=== PATIENT | female | born 1985 | race Caucasian/White ===

== ENCOUNTER → 2016-06-09 | Outpatient (CLI) | payer BC ==
[~2016-06-09] MED LIST: PRENTAB26 PO
[2016-06-09 17:17] LABS: URINE APPEARANCE CLEAR (CLEAR); URINE BILIRUBIN NEG (NEG); URINE COLOR YELLOW; URINE NITRITE NEG (NEG); URINE PH 5.5 (4.5-7.5); URINE SPECIFIC GRAVITY 1.006 (1.000-1.030); UROBILINOGEN NEG (NEG)
[2016-06-09 17:26] LABS: MANUAL MICROSCOPIC REQUIRED? NO; REVIEW REQ? NO
== END | disposition home or self-care (01) ==
LOC: C.LABSPEC 16:02
PROVIDERS: ATTEND Obstetrics & Gynecology
DX: Z34.90 Encounter for supervision of normal pregnancy, unspecified, unspecified trimester (principal)

== ENCOUNTER → 2016-06-16 | Outpatient (CLI) | payer BC ==
[2016-06-16 15:34] LABS: BASO % 0.5 %; BASO ABS # 0.05 K/uL (0-0.2); COMPLETE YES; EOS % 3.3 %; IG% 0.2 %; LYMPH % 15.9 %; LYMPH ABS # 1.62 K/uL (1.2-3.4); MEAN CELL VOLUME 85.7 fL (80-100); MEAN CORPUSCULAR HEMOGLOBIN 28.9 pg (25-34); MEAN CORPUSCULAR HGB CONC 33.8 g/dl (32-36); MEAN PLATELET VOLUME 11.3 fL (7.4-10.4); NEUT % 72.1 %; PLATELET COUNT 255 K/uL (130-400); RED BLOOD COUNT 4.67 M/uL (4.2-5.4); WHITE BLOOD COUNT 10.17 K/uL (4.8-10.8)
== END | disposition home or self-care (01) ==
LOC: C.LAB1850 14:33
PROVIDERS: ATTEND Obstetrics & Gynecology
DX: Z34.90 Encounter for supervision of normal pregnancy, unspecified, unspecified trimester (principal)

== ENCOUNTER → 2016-06-16 | Outpatient (CLI) | payer BC ==
[2016-06-19 03:05] LABS: CHLAMYDIA TRACH RNA*** NOT DETECTED (NOT DETECTED); GC (NEIS GONORRHOEAE)RNA** NOT DETECTED (NOT DETECTED)
== END | disposition home or self-care (01) ==
LOC: C.LABSPEC 17:52
PROVIDERS: ATTEND Obstetrics & Gynecology
DX: Z34.90 Encounter for supervision of normal pregnancy, unspecified, unspecified trimester (principal)

== ENCOUNTER → 2016-08-15 | Outpatient (CLI) | payer BC ==
[2016-08-15 14:04] LABS: GTGD 50 Grams
== END | disposition home or self-care (01) ==
LOC: C.LAB1850 12:02
PROVIDERS: ATTEND Obstetrics & Gynecology
DX: Z34.02 Encounter for supervision of normal first pregnancy, second trimester (principal)

== ENCOUNTER → 2016-11-03 | Outpatient (CLI) | payer BC ==
[2016-11-03 14:34] LABS: GTGD 50 Grams
[2016-11-03 15:16] LABS: URINE APPEARANCE CLEAR (CLEAR); URINE BILIRUBIN NEG (NEG); URINE COLOR YELLOW; URINE NITRITE NEG (NEG); URINE PH 6.5 (4.5-7.5); UROBILINOGEN NEG (NEG)
[2016-11-03 15:17] LABS: MANUAL MICROSCOPIC REQUIRED? NO; REVIEW REQ? YES
== END | disposition home or self-care (01) ==
LOC: C.LAB1850 11:18
PROVIDERS: ATTEND Obstetrics & Gynecology
DX: Z34.02 Encounter for supervision of normal first pregnancy, second trimester (principal); Z3A.00 Weeks of gestation of pregnancy not specified

== ENCOUNTER → 2016-12-29 | Outpatient (CLI) | payer BC | END | disposition home or self-care (01) | LOC: C.LABSPEC 15:40 | PROVIDERS: ATTEND Obstetrics & Gynecology | DX: Z34.03 Encounter for supervision of normal first pregnancy, third trimester (principal) ==

== ENCOUNTER 2017-01-21 09:48 | Inpatient (IN) | payer BC ==
[~2017-01-21] VITALS: Ht 177.8 cm; Wt 102.5 kg
[2017-01-21] MEDS ORDERED: LACTATED RINGER'S 1000ML 1,000 ML IV SCH (11:32)
[2017-01-21 12:07] LABS: HEMATOCRIT 40.2 % (37-47); MEAN CELL VOLUME 85.5 fL (80-100); MEAN CORPUSCULAR HEMOGLOBIN 28.9 pg (25-34); MEAN CORPUSCULAR HGB CONC 33.8 g/dl (32-36); MEAN PLATELET VOLUME 11.5 fL (7.4-10.4); PLATELET COUNT 235 K/uL (130-400); WHITE BLOOD COUNT 12.67 K/uL (4.8-10.8)
[2017-01-21] MEDS ORDERED: NURSING VERBAL MED ORDER ONE (13:45)
[2017-01-21] MEDS ORDERED: MISOPROSTOLTAB 50 MCG TAB ONE (13:46)
[2017-01-21 14:37] VITALS: Ht 177.8 cm; Wt 102.5 kg
[2017-01-21] MEDS ORDERED: PRENTAB26 PO (14:39)
--- NOTE | 2017-01-21 16:48 | Medical Student: [facility] ---
Medical Student Progress Note Date of Service Jan 21, 2017. Progress Note S: 31yo at 39-2 currently in active labor. SROM at 06:30 w/o contractions. Continues to leak clear fluid. First dose of cytotec administered at 14:15 for cervical ripening. Onset of contractions began shortly after cytotec administration. Currently, contractions Q5min and experiencing very mild pain ( 2/10). O: Vital signs: BP: 111/74, HR: 88, RR: 20, Temp: 36.5 SVE: 1.0/75%/-3/vertex EFM: 150s, moderate variability, spontaneous accelerations to 165-170, no decelerations. Category 1. [place]: Q5min A: 31yo at 39-2 currently in active labor; Stage 1- latent for 2hrs; Fetus is reassuring/reactive. P: 1.) cytotec 50mcg q4hr PO; consider another dose at 16:15 2.) cervix checks for adequate progression (but sparingly because membranes are already ruptured and do not want to introduce bacteria/infection) 3.) consider Pitocin if magnitude of contractions fail to increase 4.) continue to monitor FHT and toco
[2017-01-21] MEDS ORDERED: BUPIVACAINE 0.25% 30 ML VIAL ONE (21:36)
[2017-01-21] MEDS ORDERED: EpHEDrine SULFATE INJ 50 MG/ML AMP ONE (21:36)
[2017-01-21] MEDS ORDERED: FENTANYL CITRATE INJ 50 MCG/1 ML 2 ML VIAL ONE (21:36)
[2017-01-21] MEDS ORDERED: FENTANYL 2MCG/ML ROPIV 1.25MG/ML 100ML BAG EPI ONE (21:36)
[2017-01-21] MEDS: LACTATED RINGER'S 1000ML 1,000 ML IV PRN ×2 (21:54→22:17)
[2017-01-21] MEDS ORDERED: LACTATED RINGER'S 1000ML 500 ML IV PRN (22:19)
[2017-01-21] MEDS ORDERED: NALOXONE HCL INJ 1 MG in SODIUM CHLORIDE 0.9% 1000ML 1,000 ML IV PRN (22:19)
[2017-01-21] MEDS ORDERED: NALOXONE HCL INJ 0.4 MG/1 ML VIAL/CARP IV PRN (22:30)
[2017-01-21] MEDS ORDERED: NALBUPHINE HCL INJ 10 MG/ML AMP IV PRN (22:30)
[2017-01-21] MEDS ORDERED: FENTANYL 2MCG/ML ROPIV 1.25MG/ML 100ML BAG EPI PRN (22:30)
[2017-01-21] MEDS ORDERED: DiphenhydrAMINE HCL 50 MG/ML VIAL IV PRN (22:30)
[2017-01-21] MEDS ORDERED: ONDANSETRON INJ 2 MG/ML 2 ML VIAL IV PRN (22:30)
[2017-01-21] MEDS ORDERED: EpHEDrine SULFATE INJ 50 MG/ML AMP IV PRN (22:30)
[2017-01-22] MEDS ORDERED: NURSING VERBAL MED ORDER ONE (03:45)
[2017-01-22] MEDS ORDERED: OXYTOCIN 30 UNITS/500ML NSS IV ONE (03:54)
--- NOTE | 2017-01-22 04:26 | Vaginal Delivery Summary ---
Vaginal Delivery Summary The patient dilated to complete and began pushing and rapidly brought the cephalic to . She pushed over the next contraction to deliver a viable male infant Apgars 8 and 10 via over a partial third-degree perineal laceration. The delivery was uncontrolled as the patient was unable to stop pushing and therefore there was rapid delivery of the shoulders and body. was vigorous and crying at . The cord was clamped at 30 seconds of life. The mouth and nose bulb suctioned. The infant was placed on the maternal abdomen and the cord was doubly clamped and cut. The placenta was delivered spontaneously and intact, 3 vessel cord. Hemostasis achieved with dilute Pitocin and uterine massage. The bladder was drained under sterile conditions for approximately 1000 cc of urine. The vaginal laceration was "W" shaped and each side was stitched with 3-0 Vicryl. The anal sphincter was intact but the capsule was reinforced with interrupted sutures of 2-0 Vicryl. The perineal tissue was then reapproximated in the usual fashion using 3-0 Vicryl. A rectal exam was negative for sutures. EBL 300 cc's. Mother and baby stable in recovery.
[2017-01-22] MEDS ORDERED: OXYTOCIN 30 UNITS/500ML NSS IV PRN (04:30)
[2017-01-22] MEDS ORDERED: HYDROCORTISONE ACETATE 25 MG SUPP PR PRN (04:30)
[2017-01-22] MEDS ORDERED: SUPERCREAM 0.870 % 15GM JAR EXT PRN (04:30)
[2017-01-22] MEDS ORDERED: ACETAMINOPHEN 325 MG TAB PO PRN (04:30)
[2017-01-22] MEDS ORDERED: LANOLIN OINT EXT PRN ×2 (04:30)
[2017-01-22] MEDS ORDERED: BENZOCAINE 20% AER SPR 82.5 GM CAN EXT PRN (04:30)
[2017-01-22] MEDS: OXYTOCIN INJ 20 UNITS in LACTATED RINGER'S 1000ML 1,000 ML IV SCH ×2 (05:55→14:03)
[2017-01-22 07:45] VITALS: BP 106/72; PULSE 99; TEMP 36.4
[2017-01-22] MEDS: IBUPROFEN 600 MG TAB PO PRN ×4 (08:02→23:41)
[2017-01-22] MEDS: DOCUSATE SODIUM 100 MG CAP PO SCH ×2 (08:02→20:18)
--- NOTE | 2017-01-22 08:31 | Anesthesia Procedure Note ---
Anesthesia Epidural Removal Nt Date & Time Jan 22, 2017 at 08:30 Vital Signs Pain Intensity: 6.0 Notes Mental Status: alert / awake / arousable, participated in evaluation Nausea / Vomiting: adequately controlled Pain: adequately controlled Airway Patency, RR, SpO2: stable & adequate BP & HR: stable & adequate Hydration State: stable & adequate Neuraxial Anesthesia: was administered, sensory block is resolved Anesthetic Complications: no major complications apparent, pt satisfied with anesthetic care Epidural: removed without complications, with tip intact
[2017-01-22 11:35] VITALS: BP 100/67; PULSE 90; TEMP 36.6
[2017-01-22 16:30] VITALS: BP 111/75; PULSE 103; TEMP 36.4; O2SAT 100
[2017-01-22 20:00] VITALS: BP_SYST 132; BP_SYST 32; BP_DIAS 77; PULSE 105; TEMP 36.4; O2SAT 100; O2SAT 99
[2017-01-22 23:45] VITALS: BP 99/67; PULSE 84; TEMP 36.9; O2SAT 95
[2017-01-23] MEDS: OXYCODONE/ACETAMINOPHEN 5-325 TAB PO PRN ×3 (01:40→22:52)
[2017-01-23 03:50] VITALS: BP 101/69; PULSE 89; TEMP 36.4; O2SAT 97
[2017-01-23] MEDS: IBUPROFEN 600 MG TAB PO PRN ×3 (04:09→15:51)
--- NOTE | 2017-01-23 07:33 | Progress Note ---
Subjective Jan 23, 2017. Subjective conversation w/ patient, physical exam, chart review, lab review Ambulation: ambulating normally Voiding: no voiding problems Passing Gas: Yes Diet Tolerance: Regular Diet Lochia: Moderate Feeding Type: Breast Feeding Pain: CONTROLLED Review of Systems Respiratory: No shortness of breath Cardiac: No chest pain Abdomen: No nausea, No vomiting Female : No dysuria Objective Vital Signs Date Time Temp Pulse Resp B/P (MAP) Pulse Ox O2 Delivery O2 Flow Rate FiO2 01/23/17 03:50 36.4 89 18 101/69 (80) 97 Room Air 01/22/17 23:45 95 Room Air 01/22/17 23:45 36.9 84 18 99/67 (78) 95 Room Air 01/22/17 20:00 36.4 105 16 132/77 (95) 99 Room Air 01/22/17 20:00 100 Room Air 01/22/17 16:30 Room Air 01/22/17 16:30 36.4 103 16 111/75 (87) 100 Room Air 01/22/17 11:35 36.6 90 16 100/67 (78) Room Air 01/22/17 07:45 36.4 99 16 106/72 Physical Exam General Appearance: WELL-APPEARING, WD/WN, NO APPARENT DISTRESS Respiratory/Chest: lungs clear, normal breath sounds Cardiovascular: regular rate, rhythm Abdomen: normal bowel sounds, soft Fundus: Firm, Non-Tender, Relation to Umbilicus (1 BELOW u) Extremities: non-tender, normal inspection Assessment and Plan Post- Day#: 1 Continue Routine Care: NOW 1, 39-2. / 0300 O+/GBS-/RI Hgb 13.6, today pending Doing well clinically, continue routine post care. Control pain, encourage ambulation, monitor lochia. BISI ERAZO FMR PGY 1 Resident Physician Supervision Note: I interviewed and examined the patient. Discussed with Dr. Erazo and agree with findings and plan as documented in the note. Any exceptions or clarifications are listed here: Doing well. Routine care. Documented By: Cyn Rose Resident Tracking Resident Involvement: Resident Care Provided Care Provided: OB Delivery
[2017-01-23 08:00] VITALS: BP 100/65; PULSE 93; TEMP 36.3
[2017-01-23] MEDS: DOCUSATE SODIUM 100 MG CAP PO SCH ×2 (08:42→19:43)
[2017-01-23] MEDS ORDERED: DIPHTHERIA/TETANUS/PERTUSSIS 0.5 ML SYR/VIAL IM. ONE (09:00)
--- NOTE | 2017-01-23 10:09 | Discharge Instructions ---
Discharge Instructions Date of Service Jan 23, 2017. Admission Reason for Admission: R/O Labor Discharge Discharge Diagnosis / Problem: Spontaneous Vaginal Delivery Discharge Goals Goal(s): Routine recovery after delivery Medications Continue Dispensed Medications: supercream, dermaplast, tucks, lansinoh Activity Recommendations Activity Limitations: per Instructions/Follow-up section . Instructions / Follow-Up Instructions / Follow-Up ACTIVITY RECOMMENDATIONS: * Gradual return to full activity over the next 2-3 weeks. * No lifting - nothing heavier than baby over the next 2-3 weeks. * Do not engage in vigorous exercise, sexual activity or sports until cleared by your physician. * Do not drive or operate any motorized equipment until cleared by your physician. * You may shower/bathe daily. MEDICATIONS: For discomfort or pain, you may use Acetaminophen (Tylenol), Ibuprofen (Advil), or Naproxen (Aleve) following the package directions. For constipation you may use Colace following the package directions. BREAST CARE: If you are not breast feeding: * Wear a supportive bra 24 hours a day for one to two weeks. * Avoid stimulating your breasts and nipples as much as possible during the first few weeks after delivery. * When taking a shower, have the warm water hit your back, not breasts. * When your breasts feel full, apply ice packs. Usually three to four times a day helps ease the discomfort. * Take a mild pain medication (Tylenol / Motrin) when you are uncomfortable. If breast feeding: * Use breast milk to lubricate nipples. Lansinoh cream may be used for sore nipples. You do not need to remove cream prior to breast feeding. If using a different brand of cream, check the label for directions regarding removal of cream prior to nursing. * Wear a supportive bra. * If having problems with breasts or breast feeding, call a learning and development consultant or your health care provider. EPISIOTOMY CARE: After delivery, if you have an episiotomy (stitches), the following steps will ease discomfort and aid healing. * For the first 24 hours after delivery, place ice packs next to your episiotomy to help reduce swelling. * After the first 24 hour-period, sitz baths, either portable or in the tub, are suggested. A shower with a shower arm sprayed over the episiotomy may be comforting. * Jessica care should be done after each voiding and bowel movement. Squirt warm water from a plastic bottle over the perineum (region of the body between the anus and urinary opening) and pat dry. * Use Dermoplast to ease discomfort. Shake container. [place] directly over the episiotomy. Place a Tucks on a clean sanitary pad next to your episiotomy. SPECIAL CARE INSTRUCTIONS: When you are discharged from the hospital, it is important for you to follow the instructions listed below: * During the first week at home, you should be able to care for yourself and your baby. In addition, the usual light household activities are encouraged. * Limit your activities to the way you feel. Do not try to clean the house or move furniture. Be sensible. * If you actively engage in sports and have done so up until the time of your delivery, you may resume these activities as soon as you feel able. This may take up to one month or even longer. Use good judgment. * Continue to take your vitamins for at least six weeks after the of your baby. * Your diet need not be limited unless you were on a special diet before your delivery. Breast-feeding mothers need around 2500 calories per day and at least 64-80 ounces of fluid per day (8 to 10 glasses). * You should eat foods from the four major food groups. Crash diets or fad diets are to be avoided. Eating lean meats, fresh fruits and vegetables, low-fat dairy products, high fiber foods and a regular exercise program, will help you get back to your pre- weight without putting your health at risk. * Constipation is sometimes a problem after delivery. Take a mild laxative as needed. If breast feeding, Milk of Magnesia is acceptable to use. You may use a suppository or Fleets enema if no episiotomy. * A daily shower or tub bath is suggested. Be sure to thoroughly and gently dry the perineum. * A bloody vaginal discharge will usually continue until around four weeks post . A small amount of bleeding may continue for as long as six weeks. Vaginal discharge changes from the bright red bleeding after delivery to pink then brownish and finally yellowish-pink before becoming white and disappearing. * Bleeding may increase with activity. Your first period may come in 4-8 weeks. If you are breast feeding, your period may be delayed even longer. * [place] (sex) can begin whenever both you and your partner feel comfortable and do not have any form of genital infection. It is recommended that you wait at least six weeks for internal and external healing to occur. If you have questions, please talk to your health care practitioner. A condom should be used to prevent infection and . * Foreplay, gentle intercourse and lubrication is very important the first several times to prevent pain. A water-based lubricant such as K-Y jelly or Astroglide may be used. * If you have RH negative blood and your baby is RH positive, you will receive RHOGAM by injection prior to discharge. The nurse will give you a card to keep with you that has the date and place that you received RHOGAM after delivery. * During your care, you had a Rubella screen done to check for the presence of rubella antibodies in your blood. If your test was negative, you will receive a Rubella vaccine prior to discharge. This vaccine may cause a fever, soreness at the injection site and flu-like symptoms. If these symptoms persist, notify your health care practitioner. is not advised for one month after a Rubella vaccine. * Verbalizes understanding of car seat law as reviewed with patient nursing. * Car Seat hand-out given and reviewed with patient by nursing. * Shaken baby information reviewed with patient by nursing. Call you doctor if: * Heavy bleeding (saturating several pads an hour) or passing clots the size of your fist. * A fever >101 degrees F (38.3 degrees C) on two occasions four hours apart and /or chills. * Unusual pain in the pelvic or vaginal areas. * "Baby Blues" lasting longer than two weeks. If you have any questions or concerns, call your health care practitioner at . FOLLOW UP VISIT: * Please call the office at to schedule a 6 week examination. It is important you keep this appointment. It is important for you to make arrangements for either yearly or twice yearly check-ups thereafter. Current Hospital Diet Patient's current hospital diet: Regular OB Diet Discharge Diet Recommended Diet: Regular OB Diet Pending Studies Studies pending at discharge: no Medical Emergencies . Who to Call and When: Medical Emergencies: If at any time you feel your situation is an emergency, please call 911 immediately. . Non-Emergent Contact Non-Emergency issues call your: Primary Care Provider . . "Provider Documentation" section prepared by Chandrika Erazo. . VTE Core Measure Inpt VTE Proph given/why not?: Treatment not indicated
[2017-01-23] MEDS ORDERED: BISACODYL 5 MG TABEC PO ONE (23:00)
[2017-01-23 23:30] VITALS: BP 107/73; PULSE 94; TEMP 37.2
[2017-01-24] MEDS: OXYCODONE/ACETAMINOPHEN 5-325 TAB PO PRN (04:37)
--- NOTE | 2017-01-24 07:12 | Progress Note ---
Subjective Jan 24, 2017. Subjective conversation w/ patient (pt c/o hemmorrhoids), physical exam, chart review, lab review Ambulation: ambulating normally Voiding: no voiding problems Passing Gas: Yes Diet Tolerance: Regular Diet Lochia: Moderate Feeding Type: Breast Feeding Pain: controlled Review of Systems Respiratory: No shortness of breath Female : No dysuria Objective Vital Signs Date Time Temp Pulse Resp B/P (MAP) Pulse Ox O2 Delivery O2 Flow Rate FiO2 01/23/17 23:30 Room Air 01/23/17 23:30 37.2 94 18 107/73 (84) Room Air 01/23/17 16:10 Room Air 01/23/17 08:20 Room Air 01/23/17 08:00 36.3 93 18 100/65 (77) Room Air Physical Exam General Appearance: WELL-APPEARING, WD/WN, NO APPARENT DISTRESS Respiratory/Chest: lungs clear, normal breath sounds, no respiratory distress Cardiovascular: regular rate, rhythm, no gallop Abdomen: normal bowel sounds, soft Fundus: Firm, Non-Tender, Relation to Umbilicus (2 below U) Extremities: non-tender, normal inspection Assessment and Plan Post- Day#: 2 Continue Routine Care: Resident Physician Supervision Note: I interviewed and examined the patient. Discussed with Dr. Erazo and agree with findings and plan as documented in the note. Any exceptions or clarifications are listed here: [None] Documented By: Clara Vázquez NOW 1, 39-2. 12/7 0300 O+/GBS-/RI Hgb 13.6. Stable. Doing well clinically, continue routine post care. Control pain, encourage ambulation, monitor lochia. Pt counselled on dc instructions. Recommend for hemmorrhoids to keep stools soft (miralax qd, colace 100mg bid) and apply supercream as directed, as well as sugar paste prn. BISI ERAZO FMR PGY 1 Resident Tracking Resident Involvement: Resident Care Provided Care Provided: OB Delivery
[2017-01-24] MEDS ORDERED: OXYCODONE/ACETAMINOPHEN 5-325 TAB PO PRN (07:15)
[2017-01-24] MEDS ORDERED: OXYC-57 PO (07:42)
[2017-01-24 07:50] VITALS: BP 110/71; PULSE 89; TEMP 37
[2017-01-24] MEDS ORDERED: SENNA 8.6 MG TAB PO SCH (08:00)
[2017-01-24] MEDS: DOCUSATE SODIUM 100 MG CAP PO SCH (10:29)
[2017-01-24] MEDS: IBUPROFEN 600 MG TAB PO PRN (10:33)
[2017-01-24 16:40] VITALS: BP_DIAS 71; PULSE 89; TEMP 37
== END 2017-01-24 16:40 | disposition home or self-care (01) | DRG 775 ==
LOC: C.OPB 09:48 → C.LD 09:48 → C.OPB 11:41 → C.LD 11:41 → C.OBG 01-22 06:38 → EDSTATUS 01-26 09:58
PROVIDERS: ADMIT Obstetrics & Gynecology; ATTEND Obstetrics & Gynecology
PROC: 10E0XZZ Delivery of Products of Conception, External Approach (ICD-10-PCS; principal; 2017-01-22)
PROC: 0DQR0ZZ Repair Anal Sphincter, Open Approach (ICD-10-PCS; principal; 2017-01-22)
DX: O70.20 Third degree perineal laceration during delivery, unspecified (principal); Z3A.39 39 weeks gestation of pregnancy; Z37.0 Single live birth

== ENCOUNTER 2019-11-23 07:44 | Inpatient (IN) ==
[2019-11-23] MEDS ORDERED: PENICILLIN G POTASSIUM 3 MU in DEXTROSE 5% 100 ML IV PRN (07:46)
[2019-11-23] MEDS ORDERED: OXYTOCIN 30 UNITS/500 ML BAG IV PRN ×3 (07:46→15:24)
[2019-11-23] MEDS ORDERED: PENICILLIN G POTASSIUM 6 MU in DEXTROSE 5% 250 ML IV STA (07:51)
[2019-11-23 08:18] LABS: Hematocrit (blood only) 40.2 % (37-47); Hemoglobin 13.3 g/dL (12.0-16.0); Mean Corpuscular Hemoglobin 28.5 pg (25-34); Mean Corpuscular Volume 86.3 fL (80-100); Mean Platelet Volume 11.5 fL (7.4-10.4); Platelet Count 202 K/uL (130-400); RDW Coefficient of Variation 14.5 % (11.5-14.5); RDW Standard Deviation 44.8 fL (36.4-46.3); Red Blood Count 4.66 M/uL (4.2-5.4); White Blood Count 10.87 K/uL (4.8-10.8)
[2019-11-23 08:20] LABS: Mean Corpuscular Hgb Conc 33.1 g/dL (32-36)
[2019-11-23] MEDS: LACTATED RINGER'S 1,000 ML IV PRN ×2 (09:25→12:18)
[2019-11-23] MEDS ORDERED: fentaNYL 2MCG/ML ROPIV 1.25MG/ML 100 ML BAG EPI ONE (11:43)
[2019-11-23] MEDS ORDERED: fentaNYL citrate 100 MCG/2 ML VIAL ONE (11:43)
[2019-11-23] MEDS ORDERED: ePHEDrine sulfate 50 MG/ML AMP ONE (11:43)
[2019-11-23] MEDS ORDERED: BUPIVACAINE 0.25% 30 ML VIAL ONE (11:43)
[2019-11-23] MEDS ORDERED: GLUCAGON FOR INJ 1 MG VIAL IM PRN (11:45)
[2019-11-23] MEDS ORDERED: CARBOHYDRATES FOR HYPOGLYCEMIA PO PRN (11:45)
[2019-11-23] MEDS ORDERED: GLUCOSE 40% GEL 15 GM TUBE PO PRN (11:45)
[2019-11-23] MEDS ORDERED: DEXTROSE 50% 50 ML SYRINGE IV PRN (11:45)
[2019-11-23] MEDS ORDERED: GLUCOSE 10 TABS/TUBE PO PRN (11:45)
[2019-11-23] MEDS ORDERED: PROMETHAZINE HCL 25 MG in SODIUM CHLORIDE 0.9% 50 ML IV PRN (11:47)
[2019-11-23] MEDS ORDERED: ONDANSETRON INJ 2 MG/ML 2 ML VIAL IV PRN (11:47)
[2019-11-23] MEDS ORDERED: DiphenhydrAMINE HCL 50 MG/ML VIAL IV PRN (11:47)
[2019-11-23] MEDS ORDERED: ePHEDrine sulfate 50 MG/ML AMP IV PRN (11:47)
[2019-11-23] MEDS ORDERED: NALOXONE HCL 1 MG in SODIUM CHLORIDE 0.9% 1000ML 1,000 ML IV PRN (11:47)
[2019-11-23] MEDS ORDERED: NALOXONE HCL 0.4 MG/1 ML VIAL/CARP IV PRN (11:47)
[2019-11-23] MEDS ORDERED: fentaNYL 2MCG/ML ROPIV 1.25MG/ML 100 ML BAG EPI PRN (11:47)
--- NOTE | 2019-11-23 11:48 | Anesthesiology Consultation ---
Date of Service November 23, 2019 Assessment & Plan Chart Review Chart Review: Acceptable Risk for Labor Epidural ASA ASA3 Proposed Anesthesia Anesthesia Type: Labor Epidural Risk / Benefits Reviewed With: PT / POA / Parent / Guardian, Accepts Plan and Informed Consent Obtained History Height/Weight Height: 5 ft 9 in Weight: 104.78 kg Allergies Allergy/AdvReac Type Severity Reaction Status Date / Time erythromycin base Allergy Mild hives Verified 11/23/19 08:03 Medications Home Medications Medication Instructions Recorded Confirmed Last Taken prenat.vits,reji,uwq-imrk-jffdi 1 tab PO DAILY 12/14/18 11/23/19 11/22/19 08:00 Accu-Chek Guide test strips #120 ea NS 09/13/19 11/22/19 Unknown Accu-Chek Multiclix Lancet #102 ea NS 09/13/19 11/22/19 Unknown acetone (urine) test #50 ea 09/13/19 11/22/19 Unknown pen needle, diabetic 32 gauge x #30 ea 10/03/19 11/22/19 Unknown " insulin NPH isoph U-100 human 38 unit SUBCUT QPM MDD 50 11/22/19 11/23/19 11/22/19 22:30 [Novolin N Flexpen] Active Medications Generic Name Dose Route Start Last Admin Trade Name Freq PRN Reason Stop Dose Admin Lactated Ringer's 1,000 mls @ 125 mls/hr 11/23/19 07:46 11/23/19 12:18 Lr IV 11/25/19 07:45 999 mls/hr .Q8H PRN Administration L&D Protocol Protocol Oxytocin 30 units in 500 mls @ 7 mls/hr 11/23/19 07:46 11/23/19 11:21 Pitocin IV 11/25/19 07:45 0.42 units/hr .Q24H PRN 7 mls/hr Labor Induction/Augmentation Titration Protocol 0.42 UNITS/HR Past Medical History Medical History Abnormal uterine bleeding (AUB) Cervical cancer screening Encounter for anatomic survey H/O varicella Migraine Premature rupture of membranes Exercise / Class Metabolic Activity II 4-5 Yardwork/Stairs/Walk up hill Past Family History Family History Grandfather (Paternal) Cardiac disorder Other History of thyroid disorder Denies family history of Ovarian cancer Breast cancer Colorectal cancer Endometrial cancer Past Surgical History Surgical History S/P tooth extraction Past Anesthesia History No Hx of Anesthesia Complications and No Family Hx of Anesthesia Complications History of PONV No Hx of PONV and No Hx of Motion Sickness Social History Smoking Status: Never smoker Hx Alcohol Use: No Hx Substance Use: No substance use type: does not use Review of Systems denies fever/cough/ colds/ chest pain/ SOB/ RADHA Constitutional: no fever and no chills Respiratory: no cough and no dyspnea denies RADHA Cardiovascular: no chest pain and no dyspnea on exertion Physical Exam Vital Signs Last Vital Signs Temp 37.1 C 11/23/19 11:23 Pulse 83 11/23/19 12:16 Resp 18 11/23/19 11:23 BP 106/59 L 11/23/19 12:16 Pulse Ox 98 11/23/19 12:16 ENMT Mouth: no TMJ abnormality and no dentition abnormality Thyromental Distance: > or= 3.5 Finger Breadths Mallampati Class: II Neck neck extension not limited Respiratory normal respiratory effort; no respiratory distress Auscultation: lungs clear to auscultation bilaterally Cardiovascular Rate/Rhythm: regular rate and regular rhythm Neurologic moves all extremities Psychiatric Orientation: alert and oriented x 3 Testing Laboratory Results 11/23/19 07:56 11/23/19 11/23/19 11/23/19 11:53 08:57 08:56 POC Glucose 80 74 69 L*
--- NOTE | 2019-11-23 15:02 | Delivery Summary ---
Vaginal Delivery Summary Date of Service November 23, 2019 The patient dilated to complete and pushed to deliver a viable female Apgars 9 and 10 via over 2nd degree perineal laceration. Mouth and nose bulb suctioned at perineum. Shoulders and body delivered with ease. Infant was vigorous and crying at . Cord clamped at 30 seconds of life and to maternal abdomen where the cord was then doubly clamped and cut. Placenta delivered spontaneously and intact, three-vessel cord. Hemostasis achieved with dilute pitocin and uterine massage and drainage of the bladder for approximately 300 cc under sterile conditions. Laceration repaired in multiple layers with 3- 0 and 2-0 vicryl in usual fashion. Cervix and sulci intact. EBL 500 cc. Mother and baby stable recovery. [facility] Vaginal Delivery Charge Vaginal Delivery Codes: 25506 global code for the antepartum, delivery, and post-
[2019-11-23] MEDS ORDERED: DIPHTHERIA/TETANUS/PERTUSSIS 0.5 ML SYR/VIAL IM ONE (15:24)
[2019-11-23] MEDS ORDERED: BENZOCAINE 20% AER SPR 82.5 GM CAN EXT PRN (15:24)
[2019-11-23] MEDS ORDERED: OXYCODONE/ACETAMINOPHEN 5mg/325mg TAB PO PRN (15:24)
[2019-11-23] MEDS ORDERED: ACETAMINOPHEN 325 MG TAB PO PRN (15:24)
[2019-11-23] MEDS ORDERED: OXYTOCIN 20 UNITS in LACTATED RINGER'S 1,000 ML IV SCH (15:24)
[2019-11-23] MEDS ORDERED: SUPERCREAM 0.870% 15 GM JAR EXT PRN (15:24)
[2019-11-23] MEDS ORDERED: HYDROCORTISONE ACETATE 25 MG SUPP PR PRN (15:24)
--- NOTE | 2019-11-23 15:42 | Anesthesia Procedure Note ---
Date of Service November 23, 2019 Anesthesia Post Epidural Note Vital Signs Vital Signs: Temp Pulse Resp BP Pulse Ox 37.1 C 92 H 18 102/60 90 11/23/19 11:23 11/23/19 15:29 11/23/19 14:00 11/23/19 15:29 11/23/19 14:28 Pain Intensity Bilateral Abdomen: Pain Intensity: 8 Notes Mental Status: alert / awake / arousable and participated in evaluation Patient Amnestic to Procedure: Yes Nausea / Vomiting: adequately controlled Pain: adequately controlled Airway Patency, RR, SpO2: stable & adequate BP & HR: stable & adequate Hydration State: stable & adequate Anesthetic Complications: no major complications apparent and Pt Satisfied with anesthetic care
[2019-11-23] MEDS ORDERED: LACTATED RINGER'S 1,000 ML IV ONE (18:31)
--- NOTE | 2019-11-23 18:56 | Obstetrical Progress Note ---
Date of Service November 23, 2019 Assessment & Plan (1) Tachycardia: not sure of etiology tachycardia with standing. orthostasis? will check hgb and cmp. will get formal ekg. discussed with couple always our concern for PE and depending on results of labs and her sx may need to investigate that further. for now will plan ivf bolus as well and monitor closely. Admission and Anticipated Discharge Date Admission Date: November 23, 2019 Subjective ctsp due to sob and tachycardia apparently pt meeting the end of her pp recovery on L&D and was getting upright. Upon standing she says she felt what she calls a "side stitch" that stretched in a curvilinear fashion across top of abdomen. Then felt SOB and when nurse put her back to lying in bed, pulse ox showed tachy in 140s with nl oxygenation. She felt better as far as the side stitch with lying back. She denies CP. Upon my arrival in room, she was being straight cathed. She noted feeling better. No pain. No sob or cp. Has not demonstrated any significant vb. She has been eating or drinking. No n/v. Review of Systems Review of Systems: per hpi Physical Exam Constitutional: WD/WN, vitals as above not ill appearing Respiratory: normal respiratory effort, lungs clear to auscultation Cardiovascular: Rate/Rhythm: regular rate (about 100s) and regular rhythm Results & Data ([facility]) Vital Signs (Past 12 Hours) Vital Signs Temp Pulse Resp BP Pulse Ox 11/23/19 18:47 108 H 100 11/23/19 18:42 91 H 98 11/23/19 18:37 97 H 99 11/23/19 18:32 118 H 98 11/23/19 18:27 119 H 98 11/23/19 18:22 131 H 98 11/23/19 18:19 120 H 107/58 L 11/23/19 17:59 130 H 104/62 11/23/19 17:44 107 H 101/55 L 11/23/19 17:29 104 H 100/58 L 11/23/19 17:14 110 H 96/59 L 11/23/19 16:59 108 H 99/63 L 11/23/19 16:44 116 H 99/66 L 11/23/19 16:29 110 H 107/62 11/23/19 16:14 83 100/55 L 11/23/19 15:59 90 106/59 L 11/23/19 15:44 97 H 108/56 L 11/23/19 15:29 92 H 102/60 11/23/19 15:14 96 H 102/55 L 11/23/19 14:59 111 H 116/54 L 11/23/19 14:44 100 H 109/60 11/23/19 14:30 20 11/23/19 14:28 88 90 11/23/19 14:26 93 H 99 11/23/19 14:21 94 H 100 11/23/19 14:16 96 H 100 11/23/19 14:15 83 106/63 11/23/19 14:11 87 97 11/23/19 14:06 88 100 11/23/19 14:01 97 H 100 11/23/19 14:00 96 H 18 98/59 L 11/23/19 13:56 88 100 11/23/19 13:51 83 100 11/23/19 13:46 81 100 11/23/19 13:45 93 H 20 103/60 11/23/19 13:41 104 H 98 11/23/19 13:38 96 H 103/57 L 11/23/19 13:36 87 100 11/23/19 13:31 94 H 100 11/23/19 13:30 18 11/23/19 13:26 100 H 100 11/23/19 13:21 88 100 11/23/19 13:16 78 100 11/23/19 13:15 107 H 20 117/62 11/23/19 13:11 92 H 100 11/23/19 13:06 113 H 100 11/23/19 13:01 99 H 100 11/23/19 13:00 18 11/23/19 12:57 98 H 110/72 11/23/19 12:56 82 98 11/23/19 12:52 98 H 110/65 11/23/19 12:51 89 100 11/23/19 12:48 85 109/60 11/23/19 12:46 96 H 99 11/23/19 12:45 18 11/23/19 12:42 98 H 107/64 11/23/19 12:41 100 H 99 11/23/19 12:36 97 H 98/57 L 97 11/23/19 12:34 91 H 101/58 L 11/23/19 12:32 95 H 101/58 L 11/23/19 12:31 87 91 11/23/19 12:30 97 H 18 97/54 L 11/23/19 12:29 83 93 11/23/19 12:28 96 H 101/56 L 11/23/19 12:26 82 103/62 99 11/23/19 12:24 96 H 101/59 L 11/23/19 12:22 93 H 101/59 L 11/23/19 12:21 94 H 95 11/23/19 12:20 77 106/59 L 11/23/19 12:18 85 105/59 L 11/23/19 12:16 83 106/59 L 98 11/23/19 12:15 18 11/23/19 12:14 85 111/61 11/23/19 12:12 96 H 94/59 L 11/23/19 12:11 81 97 11/23/19 12:10 75 108/62 11/23/19 12:09 92 H 93 11/23/19 12:08 67 85/51 L 11/23/19 12:06 92 H 98/67 L 99 11/23/19 12:05 20 11/23/19 12:01 106 H 97 11/23/19 11:56 97 H 99 11/23/19 11:51 96 H 100 11/23/19 11:27 103 H 109/69 11/23/19 11:23 98.8 F 18 11/23/19 10:28 83 97/62 L 11/23/19 09:27 84 111/66 11/23/19 08:13 88 142/72 H 11/23/19 08:02 98.8 F 18 PG Care Time/CCT Total # of Minutes Spent Total Time Spent with Patient: Total time spent is greater than 50% in coordination of care (as documented) at patient's floor/unit and/or counseling patient: Coding Level of Care Code None Diagnoses Tachycardia R00.0
[2019-11-23 19:30] LABS: Albumin Globulin Ratio 0.5 (0.9-2); Albumin Level 2.1 gm/dl (3.4-5.0); Bilirubin,Total 0.4 mg/dl (0.2-1); Calcium 8.7 mg/dl (8.5-10.1); Creatinine Clr Calc Pharmacy 136.9 ml/min; Est GFR (African American) 120.3; Est GFR (Non-African American) 103.8; Globulin 4.1 gm/dl (2.5-4.0); Total Protein 6.2 gm/dl (6.4-8.2)
[2019-11-23 19:31] LABS: Hematocrit (blood only) 37.9 % (37-47); Hemoglobin 12.4 g/dL (12.0-16.0); Mean Corpuscular Hemoglobin 28.4 pg (25-34); Mean Corpuscular Hgb Conc 32.7 g/dL (32-36); Mean Corpuscular Volume 86.9 fL (80-100); Mean Platelet Volume 11.1 fL (7.4-10.4); Platelet Count 163 K/uL (130-400); RDW Coefficient of Variation 14.6 % (11.5-14.5); Red Blood Count 4.36 M/uL (4.2-5.4); White Blood Count 15.42 K/uL (4.8-10.8)
[2019-11-23 19:32] LABS: Basophils # (auto) 0.01 K/uL (0-0.2); Basophils % (auto) 0.1 %; Eosinophils # (auto) 0.08 K/uL (0-0.5); Eosinophils % (auto) 0.5 %; Immature Granulocytes # (auto) 0.07 K/uL (0.00-0.02); Immature Granulocytes % (auto) 0.5 %; Lymphocytes # (auto) 1.44 K/uL (1.2-3.4); Lymphocytes % (auto) 9.3 %; Monocytes # (auto) 0.95 K/uL (0.11-0.59); Monocytes % (auto) 6.2 %; Neutrophils # (auto) 12.87 K/uL (1.4-6.5); Neutrophils % (auto) 83.4 %; Platelet Estimate Normal (Normal)
--- NOTE | 2019-11-23 20:47 | Obstetrical Progress Note ---
Date of Service November 23, 2019 Assessment & Plan (1) Tachycardia: unknown etiology of her sx and tachycardia. i really have hard time believing she is dry, she had bolus and is making at least 100cc/hr urine. hgb stable postdelivery. i also doubt related to PE as her sx completely resolve w ith sitting but i do recognize risk for such in pp woman. i d/w plan to have hospitalist team evaluate her for anything i could be missing as I am not sure why she is responding this way. she denies that its a wave of anxiety. I did speak to [facility] hospitalist as pt does use [facility] for her primary care and they agree to see her for consult. consult placed. given no sx when in bed or sitting, i am comfortable transferring her to but may require bedpan or bedside commode if cannot tolerate standing. Admission and Anticipated Discharge Date Admission Date: November 23, 2019 Subjective See prior note. Pt felt well lying in bed. Her labs were wnl, no evidence of acute anemia. She received bolus IVF. She is not having evidence of ongoing bleeding. Again she ate and denies n/v. She had an EKG that was NSR with rate 95. I rec we trial her upright and when standing by bedside at first ok but then developed feeling of "i don't feel right" and ultimately notes a pressure sensation at epigastrum and substernal. she denies feeling acid reflux or need to belch. Her pulse does escalate to 140s while standing and feeling these sx but then she asks to sit by bedside and it immediately returns to 80-90s and her sx resolve. Denies calf pain. Does not describe the pain as chest pain and denies sob. Her pulse ox remained 98-99% on RA. Of note i was in room when nursing tried to have her stand by bedside to get orthostatic vitals. Physical Exam Constitutional: WD/WN, vitals as above not ill appearing Musculoskeletal: no calf tenderness. no cord. Results & Data ([facility]) Vital Signs (Past 12 Hours) Vital Signs Temp Pulse Resp BP Pulse Ox 11/23/19 20:27 96 H 103/58 L 99 11/23/19 20:23 95 H 99/58 L 11/23/19 20:22 87 97 11/23/19 20:17 107 H 98 11/23/19 20:12 93 H 97 11/23/19 20:07 95 H 98 11/23/19 20:02 89 98 11/23/19 19:57 97 H 98 11/23/19 19:52 104 H 99 11/23/19 19:47 93 H 98 11/23/19 19:42 93 H 99 11/23/19 19:37 100 H 98 11/23/19 19:32 93 H 98 11/23/19 19:27 111 H 99 11/23/19 19:22 102 H 99 11/23/19 19:17 99 H 98 11/23/19 19:15 98.8 F 18 11/23/19 19:12 97 H 99 11/23/19 19:07 99 H 98 11/23/19 19:02 96 H 97 11/23/19 18:57 105 H 97 11/23/19 18:52 114 H 99 11/23/19 18:47 108 H 100 11/23/19 18:42 91 H 98 11/23/19 18:37 97 H 99 11/23/19 18:32 118 H 98 11/23/19 18:27 119 H 98 11/23/19 18:22 131 H 98 11/23/19 18:19 120 H 107/58 L 11/23/19 18:05 98.1 F 20 11/23/19 17:59 130 H 104/62 11/23/19 17:44 107 H 101/55 L 11/23/19 17:29 104 H 100/58 L 11/23/19 17:14 110 H 96/59 L 11/23/19 16:59 108 H 99/63 L 11/23/19 16:44 116 H 99/66 L 11/23/19 16:29 110 H 107/62 11/23/19 16:14 83 100/55 L 11/23/19 15:59 90 106/59 L 11/23/19 15:44 97 H 108/56 L 11/23/19 15:29 92 H 102/60 11/23/19 15:14 96 H 102/55 L 11/23/19 14:59 111 H 116/54 L 11/23/19 14:44 100 H 109/60 11/23/19 14:30 20 11/23/19 14:28 88 90 11/23/19 14:26 93 H 99 11/23/19 14:21 94 H 100 11/23/19 14:16 96 H 100 11/23/19 14:15 83 106/63 11/23/19 14:11 87 97 11/23/19 14:06 88 100 11/23/19 14:01 97 H 100 11/23/19 14:00 96 H 18 98/59 L 11/23/19 13:56 88 100 11/23/19 13:51 83 100 11/23/19 13:46 81 100 11/23/19 13:45 93 H 20 103/60 11/23/19 13:41 104 H 98 11/23/19 13:38 96 H 103/57 L 11/23/19 13:36 87 100 11/23/19 13:31 94 H 100 11/23/19 13:30 18 11/23/19 13:26 100 H 100 11/23/19 13:21 88 100 11/23/19 13:16 78 100 11/23/19 13:15 107 H 20 117/62 11/23/19 13:11 92 H 100 11/23/19 13:06 113 H 100 11/23/19 13:01 99 H 100 11/23/19 13:00 18 11/23/19 12:57 98 H 110/72 11/23/19 12:56 82 98 11/23/19 12:52 98 H 110/65 11/23/19 12:51 89 100 11/23/19 12:48 85 109/60 11/23/19 12:46 96 H 99 11/23/19 12:45 18 11/23/19 12:42 98 H 107/64 11/23/19 12:41 100 H 99 11/23/19 12:36 97 H 98/57 L 97 11/23/19 12:34 91 H 101/58 L 11/23/19 12:32 95 H 101/58 L 11/23/19 12:31 87 91 11/23/19 12:30 97 H 18 97/54 L 11/23/19 12:29 83 93 11/23/19 12:28 96 H 101/56 L 11/23/19 12:26 82 103/62 99 11/23/19 12:24 96 H 101/59 L 11/23/19 12:22 93 H 101/59 L 11/23/19 12:21 94 H 95 11/23/19 12:20 77 106/59 L 11/23/19 12:18 85 105/59 L 11/23/19 12:16 83 106/59 L 98 11/23/19 12:15 18 11/23/19 12:14 85 111/61 11/23/19 12:12 96 H 94/59 L 11/23/19 12:11 81 97 11/23/19 12:10 75 108/62 11/23/19 12:09 92 H 93 11/23/19 12:08 67 85/51 L 11/23/19 12:06 92 H 98/67 L 99 11/23/19 12:05 20 11/23/19 12:01 106 H 97 11/23/19 11:56 97 H 99 11/23/19 11:51 96 H 100 11/23/19 11:27 103 H 109/69 11/23/19 11:23 98.8 F 18 11/23/19 10:28 83 97/62 L 11/23/19 09:27 84 111/66 PG Care Time/CCT Total # of Minutes Spent Total Time Spent with Patient: Total time spent is greater than 50% in coordination of care (as documented) at patient's floor/unit and/or counseling patient: Coding Level of Care Code None Diagnoses Tachycardia R00.0
[2019-11-23] MEDS ORDERED: SODIUM CHLORIDE 0.9% 1000ML 1,000 ML IV ONE (21:03)
--- NOTE | 2019-11-23 21:06 | XRay Report ---
XR chest 1V portable CLINICAL HISTORY: Shortness of breath COMPARISON STUDY: No previous studies for comparison. FINDINGS: The cardiac and mediastinal contours are normal. There is no evidence of focal pulmonary co nsolidation. There is no evidence of failure. No pleural effusions are visualized.[ IMPRESSION: No active disease in the chest. ACT 112: Negative or not required by law. Electronically signed by: Mega Magana M.D. 11/23/2019 9:04 PM
[2019-11-23 21:12] LABS: Lipase 69 U/L (73-393); Magnesium 1.6 mg/dl (1.8-2.4); Thyroid Stimulating Hormone 0.981 uIu/ml (0.300-4.500); Troponin I < 0.015 ng/ml (0-0.045)
[2019-11-23] MEDS: IBUPROFEN 600 MG TAB PO PRN (21:13)
[2019-11-23] MEDS: DOCUSATE SODIUM 100 MG CAP PO SCH (21:13)
--- NOTE | 2019-11-23 22:37 | Hospitalist Consultation ---
Date of Consultation November 23, 2019 Assessment & Plan (1) Tachycardia: Final Assessment and Recommendations as follows : tachycardia Likely from orthostasis, mild clinical dehydration Hypomagnesemia contributory Rule out pulmonary embolism given shortness of breath complaints Hyperglycemia Rule out DM History gestational DM as per records IVF Replace magnesium CT chest PE study Check hemoglobin A1c DVT prophylaxis as per OB service Thank you very much for this consultation. Dr. Lindsey will follow patient's progress. Text document was generated using Mirego voice recognition software. It may contain grammatical or spelling errors. Kindly contact undersigned for clarification of any documentation item in question. History of Present Illness Reason for Consultation: Shortness of breath, tachycardia Requesting Physician: Dr. Michel Attending Physician: Yoanna Michel MD, FACOG History of Present Illness PCP : Dr. Ibrahim History obtained from patient and records. Medical history significant for gestational diabetes mellitus. Patient admitted under Obstetrics service today for induction of labor culminating in vaginal delivery of a female this afternoon. Around 9 PM, patient was standing up when she experienced epigastric discomfort and shortness of breath and lightheadedness. Note of "weird" sensation. No cough symptoms. No unusual postop vaginal bleeding as per patient. Usual leg swelling from as per patient. SBP noted to be 90s. Pulse rate noted to be 140s. Symptoms and heart rate improved after patient laid back in bed. IVF bolus subsequently administered. Patient currently feels comfortable. Medical History as above Surgical History : Dental surgery Family History : Alcoholism, lung cancer; no blood clots Personal/Social history : Non-smoker, occasional EtOH intake, homemaker Allergies Allergy/AdvReac Type Severity Reaction Status Date / Time erythromycin base Allergy Mild hives Verified 11/23/19 08:03 Home Medications Home Medications Medication Instructions Recorded Confirmed Type prenat.vits,reji,gga-lpyi-xkffn 1 tab PO DAILY 12/14/18 11/23/19 History Accu-Chek Guide test strips #120 ea NS 09/13/19 11/22/19 Rx Accu-Chek Multiclix Lancet #102 ea NS 09/13/19 11/22/19 Rx acetone (urine) test #50 ea 09/13/19 11/22/19 Rx pen needle, diabetic 32 gauge x #30 ea 10/03/19 11/22/19 Rx 5/32" insulin NPH isoph U-100 human 38 unit SUBCUT QPM MDD 50 11/22/19 11/23/19 History [Novolin N Flexpen] Patient History Medical History Abnormal uterine bleeding (AUB) Cervical cancer screening Encounter for anatomic survey H/O varicella Migraine Premature rupture of membranes Surgical History S/P tooth extraction Family History Grandfather (Paternal) Cardiac disorder Other History of thyroid disorder Denies family history of Ovarian cancer Breast cancer Colorectal cancer Endometrial cancer Social History Smoking Status: Never smoker Second Hand Exposure: No; Hx Alcohol Use: No Hx Substance Use: No Preferred Language: Palestinian Consumer Experience Consultant Required: No Beliefs That Will Affect Care: None marital status: marital status details: William Stacy (41) [phone] Current Living Situation: Spouse Current Living Situation Comment: lives with and 2 year old son current occupational status: unemployed current occupation: homemaker Other Information That Helps Us Care for You: No Feels Safe at Home: Yes Safety Concerns: Feels Safe At This Time Assistive Devices: None Review of Systems Review of Systems: As per HPI, all 10 systems reviewed, all other ROS negative Physical Exam Physical Exam: GENERAL: Comfortable, obese, pleasant, slightly anxious, no respiratory distress SKIN: Normal color, warm HEENT: [place] palpebral conjunctivae, no ptosis, dry buccal mucosa NECK : Supple, short neck, no tenderness CHEST : CTA, no tenderness HEART : Tachycardic , no obvious murmurs ABDOMEN: Some distention, no overt tenderness EXTREMITIES : Minimal LE swelling, no LE tenderness, no other conspicuous deformities noted NEUROLOGIC : Coherent, no facial asymmetry, no other gross focality Results & Data Results & Data ([facility]) Vital Signs (Past 12 Hours) Vital Signs Temp Pulse Pulse Resp BP BP Pulse Ox 11/23/19 20:35 36.9 C 105 H 18 113/78 100 11/23/19 20:27 96 H 103/58 L 99 11/23/19 20:23 95 H 99/58 L 11/23/19 20:22 87 97 11/23/19 20:17 107 H 98 11/23/19 20:12 93 H 97 11/23/19 20:07 95 H 98 11/23/19 20:02 89 98 11/23/19 19:57 97 H 98 11/23/19 19:52 104 H 99 11/23/19 19:47 93 H 98 11/23/19 19:42 93 H 99 11/23/19 19:37 100 H 98 11/23/19 19:32 93 H 98 11/23/19 19:27 111 H 99 11/23/19 19:22 102 H 99 11/23/19 19:17 99 H 98 11/23/19 19:15 37.1 C 18 11/23/19 19:12 97 H 99 11/23/19 19:07 99 H 98 11/23/19 19:02 96 H 97 11/23/19 18:57 105 H 97 11/23/19 18:52 114 H 99 11/23/19 18:47 108 H 100 11/23/19 18:42 91 H 98 11/23/19 18:37 97 H 99 11/23/19 18:32 118 H 98 11/23/19 18:27 119 H 98 11/23/19 18:22 131 H 98 11/23/19 18:19 120 H 107/58 L 11/23/19 18:05 36.7 C 20 11/23/19 17:59 130 H 104/62 11/23/19 17:44 107 H 101/55 L 11/23/19 17:29 104 H 100/58 L 11/23/19 17:14 110 H 96/59 L 11/23/19 16:59 108 H 99/63 L 11/23/19 16:44 116 H 99/66 L 11/23/19 16:29 110 H 107/62 11/23/19 16:14 83 100/55 L 11/23/19 15:59 90 106/59 L 11/23/19 15:44 97 H 108/56 L 11/23/19 15:29 92 H 102/60 11/23/19 15:14 96 H 102/55 L 11/23/19 14:59 111 H 116/54 L 11/23/19 14:44 100 H 109/60 11/23/19 14:30 20 11/23/19 14:28 88 90 11/23/19 14:26 93 H 99 11/23/19 14:21 94 H 100 11/23/19 14:16 96 H 100 11/23/19 14:15 83 106/63 11/23/19 14:11 87 97 11/23/19 14:06 88 100 11/23/19 14:01 97 H 100 11/23/19 14:00 96 H 18 98/59 L 11/23/19 13:56 88 100 11/23/19 13:51 83 100 11/23/19 13:46 81 100 11/23/19 13:45 93 H 20 103/60 11/23/19 13:41 104 H 98 11/23/19 13:38 96 H 103/57 L 11/23/19 13:36 87 100 11/23/19 13:31 94 H 100 11/23/19 13:30 18 11/23/19 13:26 100 H 100 11/23/19 13:21 88 100 11/23/19 13:16 78 100 11/23/19 13:15 107 H 20 117/62 11/23/19 13:11 92 H 100 11/23/19 13:06 113 H 100 11/23/19 13:01 99 H 100 11/23/19 13:00 18 11/23/19 12:57 98 H 110/72 11/23/19 12:56 82 98 11/23/19 12:52 98 H 110/65 11/23/19 12:51 89 100 11/23/19 12:48 85 109/60 11/23/19 12:46 96 H 99 11/23/19 12:45 18 11/23/19 12:42 98 H 107/64 11/23/19 12:41 100 H 99 11/23/19 12:36 97 H 98/57 L 97 11/23/19 12:34 91 H 101/58 L 11/23/19 12:32 95 H 101/58 L 11/23/19 12:31 87 91 11/23/19 12:30 97 H 18 97/54 L 11/23/19 12:29 83 93 11/23/19 12:28 96 H 101/56 L 11/23/19 12:26 82 103/62 99 10/07/20 12:24 96 H 101/59 L 11/23/19 12:22 93 H 101/59 L 11/23/19 12:21 94 H 95 11/23/19 12:20 77 106/59 L 11/23/19 12:18 85 105/59 L 11/23/19 12:16 83 106/59 L 98 11/23/19 12:15 18 11/23/19 12:14 85 111/61 11/23/19 12:12 96 H 94/59 L 11/23/19 12:11 81 97 11/23/19 12:10 75 108/62 11/23/19 12:09 92 H 93 11/23/19 12:08 67 85/51 L 11/23/19 12:06 92 H 98/67 L 99 11/23/19 12:05 20 11/23/19 12:01 106 H 97 11/23/19 11:56 97 H 99 11/23/19 11:51 96 H 100 11/23/19 11:27 103 H 109/69 11/23/19 11:23 37.1 C 18 Laboratory Results Laboratory Results WBC 15.42 K/uL (4.8-10.8) H 11/23/19 18:45 RBC 4.36 M/uL (4.2-5.4) 11/23/19 18:45 Hgb 12.4 g/dL (12.0-16.0) 11/23/19 18:45 Hct 37.9 % (37-47) 11/23/19 18:45 MCV 86.9 fL (80-100) 11/23/19 18:45 MCH 28.4 pg (25-34) 11/23/19 18:45 MCHC 32.7 g/dL (32-36) 11/23/19 18:45 RDW Std Deviation 46.0 fL (36.4-46.3) 11/23/19 18:45 RDW Coeff of Laura 14.6 % (11.5-14.5) H 11/23/19 18:45 Plt Count 163 K/uL (130-400) 11/23/19 18:45 MPV 11.1 fL (7.4-10.4) H 11/23/19 18:45 Immature Gran % (Auto) 0.5 % 11/23/19 18:45 Neut % (Auto) 83.4 % 11/23/19 18:45 Lymph % (Auto) 9.3 % 11/23/19 18:45 Dickson % (Auto) 6.2 % 11/23/19 18:45 Eos % (Auto) 0.5 % 11/23/19 18:45 Baso % (Auto) 0.1 % 11/23/19 18:45 Neut # (Auto) 12.87 K/uL (1.4-6.5) H 11/23/19 18:45 Lymph # (Auto) 1.44 K/uL (1.2-3.4) 11/23/19 18:45 Dickson # (Auto) 0.95 K/uL (0.11-0.59) H 11/23/19 18:45 Eos # (Auto) 0.08 K/uL (0-0.5) 11/23/19 18:45 Baso # (Auto) 0.01 K/uL (0-0.2) 11/23/19 18:45 Immature Gran # (Auto) 0.07 K/uL (0.00-0.02) H 11/23/19 18:45 Platelet Estimate Normal (Normal) 11/23/19 18:45 Sodium 134 mmol/L (136-145) L 11/23/19 18:45 Potassium 4.0 mmol/L (3.5-5.1) 11/23/19 18:45 Chloride 107 mmol/L (98-107) 11/23/19 18:45 Carbon Dioxide 20 mmol/L (21-32) L 11/23/19 18:45 Anion Gap 7.0 (3-11) 11/23/19 18:45 BUN 13 mg/dl (7-18) 11/23/19 18:45 Creatinine 0.76 mg/dl (0.6-1.2) 11/23/19 18:45 Est Cr Clr Drug Dosing 136.9 ml/min 11/23/19 18:45 Est GFR ( Amer) 120.3 11/23/19 18:45 Est GFR (Non-Af Amer) 103.8 11/23/19 18:45 BUN/Creatinine Ratio 17.0 (10-20) 11/23/19 18:45 Glucose 143 mg/dl (70-99) H 11/23/19 18:45 POC Glucose 92 mg/dl (70-99) 11/23/19 12:32 Calcium 8.7 mg/dl (8.5-10.1) 11/23/19 18:45 Magnesium 1.6 mg/dl (1.8-2.4) L 11/23/19 18:45 Total Bilirubin 0.4 mg/dl (0.2-1) 11/23/19 18:45 AST 25 U/L (15-37) 11/23/19 18:45 ALT 17 U/L (12-78) 11/23/19 18:45 Alkaline Phosphatase 120 U/L (45-117) H 11/23/19 18:45 Troponin I < 0.015 ng/ml (0-0.045) 11/23/19 18:45 Total Protein 6.2 gm/dl (6.4-8.2) L 11/23/19 18:45 Albumin 2.1 gm/dl (3.4-5.0) L 11/23/19 18:45 Globulin 4.1 gm/dl (2.5-4.0) H 11/23/19 18:45 Albumin/Globulin Ratio 0.5 (0.9-2) L 11/23/19 18:45 Lipase 69 U/L (73-393) L 11/23/19 18:45 TSH 0.981 uIu/ml (0.300-4.500) 11/23/19 18:45 Specimen Hemolysis 11/23/19 18:45 Specimen Hemolysis 11/23/19 18:45 Diagnostic Findings Chest x-ray : No active disease in the chest. EKG as per my interpretation : Rate 95, NSR, normal axis, no ischemia
[2019-11-23] MEDS: MAGNESIUM SULFATE / D5W 1 GM/100 ML BAG IV SCH (22:44)
[2019-11-23] MEDS ORDERED: NSS + 20MEQ KCL 20 MEQ/1,000 ML BAG IV ONE (23:19)
[2019-11-24] MEDS ORDERED: OPTIRAY 320 125ml IV ONE (00:03)
[2019-11-24] MEDS: MAGNESIUM SULFATE / D5W 1 GM/100 ML BAG IV SCH (01:16)
[2019-11-24 05:10] LABS: Appearance Urine Clear (Clear); Bacteria Urine Automated Negative (Negative); Bilirubin Urine Negative (Negative); Blood Urine 3+ (Negative); Color Urine Yellow; Glucose Urine UA Negative (Negative); Ketones Urine Negative (Negative); Leukocyte Esterase Urine 1+ (Negative); Nitrite Urine Negative (Negative); Protein Urine Negative (Negative); RBC Urine Automated >30 /hpf (0-4); Specific Gravity Urine 1.019 (1.000-1.030); Urobilinogen Urine Negative (Negative)
[2019-11-24] MEDS: IBUPROFEN 600 MG TAB PO PRN ×4 (05:37→20:36)
[2019-11-24 06:14] LABS: Hematocrit (blood only) 32.4 % (37-47); Hemoglobin 10.9 g/dL (12.0-16.0)
[2019-11-24 06:36] LABS: Estimated Average Glucose 100 mg/dl; Hemoglobin A1C 5.1 % (4.5-5.6)
[2019-11-24 06:41] LABS: BUN Creatinine Ratio 15.4 (10-20); Calcium 8.1 mg/dl (8.5-10.1); Creatinine Clr Calc Pharmacy 170.6 ml/min; Magnesium 1.9 mg/dl (1.8-2.4); Potassium 4.2 mmol/L (3.5-5.1)
--- NOTE | 2019-11-24 07:11 | CT Scan Report ---
CT angio chest PE protocol CT DOSE: 376.87 mGy.cm HISTORY: 33 years-old Female with PE. Acute postgravid tachycardia with shortness of breath TECHNIQUE: Multiple CTA images of the chest were obtained after the intravenous administration of 98 ml Optiray 320. Coronal and sagittal MIPS were obtained from the axial data set and were submitted f or review. All measurements were obtained according to NASCET criteria. A dose lowering technique wa s utilized adhering to the principles of ALARA. COMPARISON: Chest radiograph of same day FINDINGS: CTA: Heart is normal in size. There is no pericardial effusion. No thoracic aortic aneurysm or dissection. Patency of the imaged great vessels. The pulmonary arterial tree is opacified to the level of the pr oximal subsegmental branches and demonstrates no filling defects to suggest thromboembolic disease. CT CHEST: 8 mm left thyroid nodule. Probable trace residual thymic tissue anterior mediastinum. No adenopathy. There is no pneumothorax, pleural effusion, overt pulmonary edema, suspicious nodule or airspace cons olidation typical for pneumonia. Central airways are patent. The imaged upper abdomen is unremarkable . Air is noted within circumferential a within the epidural space of the thoracic spine, most pronoun shelley the thoracic inlet. Air is noted extending into the right-sided scalene musculature. Minimal air is also noted tracking into the superior aspect of the left mediastinum the level of the thoracic inl et on image 226 series 4. Minimal deep tissue air is also within the left retrocrural distribution. B ones are intact. No acute fracture. IMPRESSION: 1. No evidence of pulmonary thromboembolic disease. 2. No adenopathy, pleural effusion or airspace consolidation to suggest pneumonia. 3. Air within the epidural space is noted tracking into adjacent tissues which includes the left retr ocrural distribution, right scalene musculature and superior mediastinum, likely from recent epidural injection. ACT 112: Negative or not required by law. The above report was generated using voice recognition software. It may contain grammatical, syntax o r spelling errors. Electronically signed by: Sandro Allen M.D. 11/24/2019 7:10 AM
--- NOTE | 2019-11-24 07:22 | Obstetrical Progress Note ---
Date of Service <Teodoro Mays MD - Last Filed: 11/24/19 07:22> November 24, 2019 Assessment & Plan <Teodoro Mays MD - Last Filed: 11/24/19 07:22> (1) Spontaneous vaginal delivery: Arina is a 33 y/o female who is now PPD #1 following IOL for GDMA2 and subsequent at 40 weeks. - Feels well today. Eating well, voiding well, ambulating well. - Pain well controlled with ibuprofen 600mg Q4H PRN. - Routine care -- OOB, ambulation, diet progression as tolerated - After discharge will have [address] Michel. Subjective <Teodoro Mays MD - Last Filed: 11/24/19 07:22> Arina is a 33 y/o female who is now PPD #1 following IOL for GDMA2 and subsequent at 40 weeks. Reports feeling well overall this morning. Endorses some abdominal cramping & 3/10 pain well managed on analgesics. Voiding small amounts with mild pain. Tolerating meals overnight and able to ambulate some. Endorses passing gas. Some persistent lochia with some improvement this morning. Breast feeding without difficulty. Review of Systems Denies fever, chills, sweats Denies shortness of breath, difficulty breathing, chest pain, palpitations, chest pressure. Denies breast pain. Denies dysuria. Denies headache or changes in vision. Physical Exam <Teodoro Mays MD - Last Filed: 11/24/19 07:22> General: Alert, oriented. No acute distress. Cardiac: Regular rate and rhythm, no murmurs/rubs/gallops. Respiratory: Clear to auscultation bilaterally a/p, no wheezes/rales/rhonchi. No increased work of breathing. Symmetrical chest rise. No respiratory distress. Abdomen: Soft, nontender, nondistended. Bowel sounds present. Uterus: Uterine fundus firm, palpable 2 cm below umbilicus. Lower Extremities: No lower extremity edema or swelling. No deep calf pain. Taryn's negative bilaterally. Results & Data ([facility]) <Teodoro Mays MD - Last Filed: 11/24/19 07:22> Vital Signs (Past 12 Hours) Vital Signs Temp Pulse Pulse Resp BP BP Pulse Ox 11/24/19 04:00 36.7 C 82 18 107/72 99 11/24/19 00:35 36.8 C 80 18 95/63 L 97 11/23/19 20:35 36.9 C 105 H 18 113/78 100 11/23/19 20:27 96 H 103/58 L 99 11/23/19 20:23 95 H 99/58 L 11/23/19 20:22 87 97 11/23/19 20:17 107 H 98 11/23/19 20:12 93 H 97 11/23/19 20:07 95 H 98 11/23/19 20:02 89 98 11/23/19 19:57 97 H 98 11/23/19 19:52 104 H 99 11/23/19 19:47 93 H 98 11/23/19 19:42 93 H 99 11/23/19 19:37 100 H 98 11/23/19 19:32 93 H 98 11/23/19 19:27 111 H 99 11/23/19 19:22 102 H 99 <Yoanna Michel MD, FACOG - Last Filed: 11/24/19 07:56> Co-Signing Physician Notes Resident Physician Supervision Note: I was present with Dr. Mays during the history and exam. I discussed the case with the resident and agree with the findings and plan as documented in the note. Any exceptions or clarifications are listed here: pt doing well this am. her sx of tachycardia and unsteadiness being upright have passed. appreciate input of hospitalist. CTA and CXR wnl. Labs noted. In the end the etiology of her sx likely orthostasis. Reviewed with patient, still rec continuing hospitalization for monitoring. routine ob care. rh pos, ri. . Documented By: Yoanna Michel MD, FACOG
[2019-11-24] MEDS: DOCUSATE SODIUM 100 MG CAP PO SCH ×2 (08:26→20:36)
--- NOTE | 2019-11-24 08:38 | Hospitalist Progress Note ---
Date of Service November 24, 2019 Assessment & Plan (1) Tachycardia: Final Assessment and Recommendations as follows : tachycardia Likely from orthostasis, mild clinical dehydration, now resolved IVF given - can stop now Hypomagnesemia contributory Replaced magnesium, Mag this AM normal Rule out pulmonary embolism given shortness of breath complaints CT chest PE study - negative Hyperglycemia, Rule out DM History gestational DM as per records Checked hemoglobin A1c - 5.1% DVT prophylaxis as per OB service Thank you for this consultation. Please contact me with any questions or concerns. Admission and Anticipated Discharge Date Admission Date: November 23, 2019 Subjective Patient is currently lying in bed, with her baby daughter. She denies any chest pain, shortness of breath, dizziness, lightheadedness, abdominal pain, nausea or vomiting. She states that she feels somewhat tired. Vital signs obtained by nursing staff, stable, no episodes of tachycardia. CT PE negative last night. Pulse ox 100%. Review of Systems Review of Systems: All systems reviewed & are unremarkable except as noted in HPI & below Constitutional: no fever and no chills Respiratory: no cough and no dyspnea Cardiovascular: no chest pain and no palpitations Gastrointestinal: no abdominal pain, no nausea and no vomiting Physical Exam Physical Exam: GENERAL: Comfortable, obese, pleasant,in no respiratory distress HEENT: Normal cephalic, atraumatic, [place] palpebral conjunctivae, no ptosis NECK : Supple, no tenderness CHEST : CTA, no tenderness HEART : RRR , no obvious murmurs ABDOMEN: soft, mild distention, + bowel sounds, no overt tenderness EXTREMITIES : Minimal LE swelling, no LE tenderness, moves all 4 extremities spontaneously SKIN: Normal color, warm, dry NEUROLOGIC : Alert and oriented x3, no facial asymmetry, speech fluent, moves all 4 extremities spontaneously Results & Data Results & Data ([facility]) Vital Signs (Past 12 Hours) Vital Signs Temp Pulse Resp BP Pulse Ox 11/24/19 04:00 36.7 C 82 18 107/72 99 11/24/19 00:35 36.8 C 80 18 95/63 L 97 Laboratory Results 11/24/19 11/24/19 11/24/19 Range/Units 06:01 06:01 06:01 WBC (4.8-10.8) K/uL RBC (4.2-5.4) M/uL Hgb (12.0-16.0) g/dL Hct (37-47) % MCV (80-100) fL MCH (25-34) pg MCHC (32-36) g/dL RDW Std Deviation (36.4-46.3) fL RDW Coeff of Laura (11.5-14.5) % Plt Count (130-400) K/uL MPV (7.4-10.4) fL Immature Gran % (Auto) % Neut % (Auto) % Lymph % (Auto) % [place] % (Auto) % Eos % (Auto) % Baso % (Auto) % Neut # (Auto) (1.4-6.5) K/uL Lymph # (Auto) (1.2-3.4) K/uL [place] # (Auto) (0.11-0.59) K/uL Eos # (Auto) (0-0.5) K/uL Baso # (Auto) (0-0.2) K/uL Immature Gran # (Auto) (0.00-0.02) K/uL Platelet Estimate (Normal) Sodium (136-145) mmol/L Potassium (3.5-5.1) mmol/L Chloride (98-107) mmol/L Carbon Dioxide (21-32) mmol/L Anion Gap (3-11) BUN (7-18) mg/dl Creatinine (0.6-1.2) mg/dl Est Cr Clr Drug Dosing ml/min Est GFR ( Amer) Est GFR (Non-Af Amer) BUN/Creatinine Ratio (10-20) Glucose (70-99) mg/dl POC Glucose (70-99) mg/dl Estimat Average Glucose 100 mg/dl Hemoglobin A1c 5.1 (4.5-5.6) % Lactate 0.8 (0.4-2.0) mmol/L Calcium (8.5-10.1) mg/dl Magnesium (1.8-2.4) mg/dl Total Bilirubin (0.2-1) mg/dl AST (15-37) U/L ALT (12-78) U/L Alkaline Phosphatase (45-117) U/L Troponin I (0-0.045) ng/ml Total Protein (6.4-8.2) gm/dl Albumin (3.4-5.0) gm/dl Globulin (2.5-4.0) gm/dl Albumin/Globulin Ratio (0.9-2) Lipase (73-393) U/L Procalcitonin Pending TSH (0.300-4.500) uIu/ml Specimen Hemolysis Urine Color Urine Appearance (Clear) Urine pH (4.5-7.5) Ur Specific [place] (1.000-1.030) Urine Protein (Negative) Urine Glucose (UA) (Negative) Urine Ketones (Negative) Urine Blood (Negative) Urine Nitrite (Negative) Urine Bilirubin (Negative) Urine Urobilinogen (Negative) Ur Leukocyte Esterase (Negative) Urine WBC (Auto) (0-5) /hpf Urine RBC (Auto) (0-4) /hpf U Hyaline Cast (Auto) (0-5) /lpf U Epithel Cells (Auto) (0-5) /lpf Urine Bacteria (Auto) (Negative) 11/24/19 11/24/19 11/24/19 Range/Units 06:01 06:01 04:10 WBC (4.8-10.8) K/uL RBC (4.2-5.4) M/uL Hgb 10.9 L (12.0-16.0) g/dL Hct 32.4 L (37-47) % MCV (80-100) fL MCH (25-34) pg MCHC (32-36) g/dL RDW Std Deviation (36.4-46.3) fL RDW Coeff of Laura (11.5-14.5) % Plt Count (130-400) K/uL MPV (7.4-10.4) fL Immature Gran % (Auto) % Neut % (Auto) % Lymph % (Auto) % [place] % (Auto) % Eos % (Auto) % Baso % (Auto) % Neut # (Auto) (1.4-6.5) K/uL Lymph # (Auto) (1.2-3.4) K/uL [place] # (Auto) (0.11-0.59) K/uL Eos # (Auto) (0-0.5) K/uL Baso # (Auto) (0-0.2) K/uL Immature Gran # (Auto) (0.00-0.02) K/uL Platelet Estimate (Normal) Sodium 139 (136-145) mmol/L Potassium 4.2 (3.5-5.1) mmol/L Chloride 109 H (98-107) mmol/L Carbon Dioxide 28 (21-32) mmol/L Anion Gap 2.0 L (3-11) BUN 9 (7-18) mg/dl Creatinine 0.61 (0.6-1.2) mg/dl Est Cr Clr Drug Dosing 170.6 ml/min Est GFR ( Amer) 139.0 Est GFR (Non-Af Amer) 120.0 BUN/Creatinine Ratio 15.4 (10-20) Glucose 66 L (70-99) mg/dl POC Glucose (70-99) mg/dl Estimat Average Glucose mg/dl Hemoglobin A1c (4.5-5.6) % Lactate (0.4-2.0) mmol/L Calcium 8.1 L (8.5-10.1) mg/dl Magnesium 1.9 (1.8-2.4) mg/dl Total Bilirubin (0.2-1) mg/dl AST (15-37) U/L ALT (12-78) U/L Alkaline Phosphatase (45-117) U/L Troponin I (0-0.045) ng/ml Total Protein (6.4-8.2) gm/dl Albumin (3.4-5.0) gm/dl Globulin (2.5-4.0) gm/dl Albumin/Globulin Ratio (0.9-2) Lipase (73-393) U/L Procalcitonin TSH (0.300-4.500) uIu/ml Specimen Hemolysis Urine Color Yellow Urine Appearance Clear (Clear) Urine pH 5.0 (4.5-7.5) Ur Specific [place] 1.019 (1.000-1.030) Urine Protein Negative (Negative) Urine Glucose (UA) Negative (Negative) Urine Ketones Negative (Negative) Urine Blood 3+ H (Negative) Urine Nitrite Negative (Negative) Urine Bilirubin Negative (Negative) Urine Urobilinogen Negative (Negative) Ur Leukocyte Esterase 1+ H (Negative) Urine WBC (Auto) 5-10 H (0-5) /hpf Urine RBC (Auto) >30 H (0-4) /hpf U Hyaline Cast (Auto) 1-5 (0-5) /lpf U Epithel Cells (Auto) 10-20 H (0-5) /lpf Urine Bacteria (Auto) Negative (Negative) 11/23/19 11/23/19 11/23/19 Range/Units 18:45 18:45 18:45 WBC 15.42 H (4.8-10.8) K/uL RBC 4.36 (4.2-5.4) M/uL Hgb 12.4 (12.0-16.0) g/dL Hct 37.9 (37-47) % MCV 86.9 (80-100) fL MCH 28.4 (25-34) pg MCHC 32.7 (32-36) g/dL RDW Std Deviation 46.0 (36.4-46.3) fL RDW Coeff of Laura 14.6 H (11.5-14.5) % Plt Count 163 (130-400) K/uL MPV 11.1 H (7.4-10.4) fL Immature Gran % (Auto) 0.5 % Neut % (Auto) 83.4 % Lymph % (Auto) 9.3 % [place] % (Auto) 6.2 % Eos % (Auto) 0.5 % Baso % (Auto) 0.1 % Neut # (Auto) 12.87 H (1.4-6.5) K/uL Lymph # (Auto) 1.44 (1.2-3.4) K/uL [place] # (Auto) 0.95 H (0.11-0.59) K/uL Eos # (Auto) 0.08 (0-0.5) K/uL Baso # (Auto) 0.01 (0-0.2) K/uL Immature Gran # (Auto) 0.07 H (0.00-0.02) K/uL Platelet Estimate Normal (Normal) Sodium 134 L (136-145) mmol/L Potassium 4.0 (3.5-5.1) mmol/L Chloride 107 (98-107) mmol/L Carbon Dioxide 20 L (21-32) mmol/L Anion Gap 7.0 (3-11) BUN 13 (7-18) mg/dl Creatinine 0.76 (0.6-1.2) mg/dl Est Cr Clr Drug Dosing 136.9 ml/min Est GFR ( Amer) 120.3 Est GFR (Non-Af Amer) 103.8 BUN/Creatinine Ratio 17.0 (10-20) Glucose 143 H (70-99) mg/dl POC Glucose (70-99) mg/dl Estimat Average Glucose mg/dl Hemoglobin A1c (4.5-5.6) % Lactate (0.4-2.0) mmol/L Calcium 8.7 (8.5-10.1) mg/dl Magnesium 1.6 L (1.8-2.4) mg/dl Total Bilirubin 0.4 (0.2-1) mg/dl AST 25 (15-37) U/L ALT 17 (12-78) U/L Alkaline Phosphatase 120 H (45-117) U/L Troponin I < 0.015 (0-0.045) ng/ml Total Protein 6.2 L (6.4-8.2) gm/dl Albumin 2.1 L (3.4-5.0) gm/dl Globulin 4.1 H (2.5-4.0) gm/dl Albumin/Globulin Ratio 0.5 L (0.9-2) Lipase 69 L (73-393) U/L Procalcitonin TSH 0.981 (0.300-4.500) uIu/ml Specimen Hemolysis Urine Color Urine Appearance (Clear) Urine pH (4.5-7.5) Ur Specific [place] (1.000-1.030) Urine Protein (Negative) Urine Glucose (UA) (Negative) Urine Ketones (Negative) Urine Blood (Negative) Urine Nitrite (Negative) Urine Bilirubin (Negative) Urine Urobilinogen (Negative) Ur Leukocyte Esterase (Negative) Urine WBC (Auto) (0-5) /hpf Urine RBC (Auto) (0-4) /hpf U Hyaline Cast (Auto) (0-5) /lpf U Epithel Cells (Auto) (0-5) /lpf Urine Bacteria (Auto) (Negative) 11/23/19 11/23/19 11/23/19 Range/Units 12:32 11:53 08:57 WBC (4.8-10.8) K/uL RBC (4.2-5.4) M/uL Hgb (12.0-16.0) g/dL Hct (37-47) % MCV (80-100) fL MCH (25-34) pg MCHC (32-36) g/dL RDW Std Deviation (36.4-46.3) fL RDW Coeff of Laura (11.5-14.5) % Plt Count (130-400) K/uL MPV (7.4-10.4) fL Immature Gran % (Auto) % Neut % (Auto) % Lymph % (Auto) % [place] % (Auto) % Eos % (Auto) % Baso % (Auto) % Neut # (Auto) (1.4-6.5) K/uL Lymph # (Auto) (1.2-3.4) K/uL [place] # (Auto) (0.11-0.59) K/uL Eos # (Auto) (0-0.5) K/uL Baso # (Auto) (0-0.2) K/uL Immature Gran # (Auto) (0.00-0.02) K/uL Platelet Estimate (Normal) Sodium (136-145) mmol/L Potassium (3.5-5.1) mmol/L Chloride (98-107) mmol/L Carbon Dioxide (21-32) mmol/L Anion Gap (3-11) BUN (7-18) mg/dl Creatinine (0.6-1.2) mg/dl Est Cr Clr Drug Dosing ml/min Est GFR ( Amer) Est GFR (Non-Af Amer) BUN/Creatinine Ratio (10-20) Glucose (70-99) mg/dl POC Glucose 92 80 74 (70-99) mg/dl Estimat Average Glucose mg/dl Hemoglobin A1c (4.5-5.6) % Lactate (0.4-2.0) mmol/L Calcium (8.5-10.1) mg/dl Magnesium (1.8-2.4) mg/dl Total Bilirubin (0.2-1) mg/dl AST (15-37) U/L ALT (12-78) U/L Alkaline Phosphatase (45-117) U/L Troponin I (0-0.045) ng/ml Total Protein (6.4-8.2) gm/dl Albumin (3.4-5.0) gm/dl Globulin (2.5-4.0) gm/dl Albumin/Globulin Ratio (0.9-2) Lipase (73-393) U/L Procalcitonin TSH (0.300-4.500) uIu/ml Specimen Hemolysis Urine Color Urine Appearance (Clear) Urine pH (4.5-7.5) Ur Specific [place] (1.000-1.030) Urine Protein (Negative) Urine Glucose (UA) (Negative) Urine Ketones (Negative) Urine Blood (Negative) Urine Nitrite (Negative) Urine Bilirubin (Negative) Urine Urobilinogen (Negative) Ur Leukocyte Esterase (Negative) Urine WBC (Auto) (0-5) /hpf Urine RBC (Auto) (0-4) /hpf U Hyaline Cast (Auto) (0-5) /lpf U Epithel Cells (Auto) (0-5) /lpf Urine Bacteria (Auto) (Negative) 11/23/19 Range/Units 08:56 WBC (4.8-10.8) K/uL RBC (4.2-5.4) M/uL Hgb (12.0-16.0) g/dL Hct (37-47) % MCV (80-100) fL MCH (25-34) pg MCHC (32-36) g/dL RDW Std Deviation (36.4-46.3) fL RDW Coeff of Laura (11.5-14.5) % Plt Count (130-400) K/uL MPV (7.4-10.4) fL Immature Gran % (Auto) % Neut % (Auto) % Lymph % (Auto) % [place] % (Auto) % Eos % (Auto) % Baso % (Auto) % Neut # (Auto) (1.4-6.5) K/uL Lymph # (Auto) (1.2-3.4) K/uL [place] # (Auto) (0.11-0.59) K/uL Eos # (Auto) (0-0.5) K/uL Baso # (Auto) (0-0.2) K/uL Immature Gran # (Auto) (0.00-0.02) K/uL Platelet Estimate (Normal) Sodium (136-145) mmol/L Potassium (3.5-5.1) mmol/L Chloride (98-107) mmol/L Carbon Dioxide (21-32) mmol/L Anion Gap (3-11) BUN (7-18) mg/dl Creatinine (0.6-1.2) mg/dl Est Cr Clr Drug Dosing ml/min Est GFR ( Amer) Est GFR (Non-Af Amer) BUN/Creatinine Ratio (10-20) Glucose (70-99) mg/dl POC Glucose 69 L* (70-99) mg/dl Estimat Average Glucose mg/dl Hemoglobin A1c (4.5-5.6) % Lactate (0.4-2.0) mmol/L Calcium (8.5-10.1) mg/dl Magnesium (1.8-2.4) mg/dl Total Bilirubin (0.2-1) mg/dl AST (15-37) U/L ALT (12-78) U/L Alkaline Phosphatase (45-117) U/L Troponin I (0-0.045) ng/ml Total Protein (6.4-8.2) gm/dl Albumin (3.4-5.0) gm/dl Globulin (2.5-4.0) gm/dl Albumin/Globulin Ratio (0.9-2) Lipase (73-393) U/L Procalcitonin TSH (0.300-4.500) uIu/ml Specimen Hemolysis Urine Color Urine Appearance (Clear) Urine pH (4.5-7.5) Ur Specific [place] (1.000-1.030) Urine Protein (Negative) Urine Glucose (UA) (Negative) Urine Ketones (Negative) Urine Blood (Negative) Urine Nitrite (Negative) Urine Bilirubin (Negative) Urine Urobilinogen (Negative) Ur Leukocyte Esterase (Negative) Urine WBC (Auto) (0-5) /hpf Urine RBC (Auto) (0-4) /hpf U Hyaline Cast (Auto) (0-5) /lpf U Epithel Cells (Auto) (0-5) /lpf Urine Bacteria (Auto) (Negative) Medications Administered Current Inpatient Medications Acetaminophen (Acetaminophen 325 Mg Tab) 650 mg PO Q6H PRN PRN Reason: Pain/[place]AMLIN/Fever Stop: 12/23/19 15:23 Benzocaine (Benzocaine 20% Aer Spr 82.5 Gm Can) 1 appln EXT PRN PRN PRN Reason: Perineal Discomfort Stop: 12/23/19 15:23 Cocaine HCl (Supercream 0.870% 15 Gm Jar) 1 gm EXT BID PRN PRN Reason: Hemorrhoidal Inflammation Stop: 12/07/19 15:23 Last Admin: 11/24/19 08:26 Dose: 1 units Documented by: Docusate Sodium (Docusate Sodium 100 Mg Cap) 100 mg PO DAILY@ [facility] Stop: 12/23/19 20:59 Last Admin: 11/24/19 08:26 Dose: 100 mg Documented by: Hydrocortisone (Hydrocortisone Acetate 25 Mg Supp) 25 mg [place] BID PRN PRN Reason: Hemorrhoidal Inflammation Stop: 12/23/19 15:23 Oxytocin 20 units/ Lactated (Ringer's) 1,002 mls @ 125 mls/hr IV .Q8H1M BELIA Stop: 12/23/19 15:23 Last Infusion: 11/23/19 19:22 Dose: 125 mls/hr Documented by: Oxytocin (Pitocin) 30 units in 500 mls @ 333.333 mls/hr IV .Q1H30M PRN; Protocol PRN Reason: Bleeding Control Stop: 12/23/19 15:23 Potassium Chloride/Sodium Chloride (Normal Saline W/20 Meq Kcl) 20 meq in 1,000 mls @ 80 mls/hr IV .[id number] ONE Stop: 11/24/19 11:48 Last Admin: 11/24/19 00:29 Dose: 80 mls/hr Documented by: Ibuprofen (Ibuprofen 600 Mg Tab) 600 mg PO Q4H PRN PRN Reason: Pain/[place]/Cramping/Fever Stop: 12/23/19 15:23 Last Admin: 11/24/19 05:37 Dose: 600 mg Documented by: Oxycodone/Acetaminophen (Oxycodone/Acetaminophen 5mg/325mg Tab) 1 tab PO Q4H PRN PRN Reason: Pain not relieved by... Stop: 12/07/19 15:23
--- NOTE | 2019-11-24 17:40 | Electrocardiogram Report ---
Test Reason : Blood Pressure : / mmHG Vent. Rate : 095 BPM Atrial Rate : 095 BPM P-R Int : 122 ms QRS Dur : 076 ms QT Int : 332 ms P-R-T Axes : 048 057 018 degrees QTc Int : 417 ms Normal sinus rhythm Normal ECG No previous ECGs available Confirmed by Kael Mariscal ([id number]) on 11/24/2019 5:40:23 PM Referred By: Yoanna Michel Confirmed By:Royce Mariscal
[2019-11-25] MEDS: IBUPROFEN 600 MG TAB PO PRN ×2 (04:36→08:00)
--- NOTE | 2019-11-25 05:54 | Obstetrical Progress Note ---
Date of Service <Teodoro Mays MD - Last Filed: 11/25/19 07:07> November 25, 2019 Assessment & Plan <Teodoro Mays MD - Last Filed: 11/25/19 07:07> (1) Spontaneous vaginal delivery: Arina is a 33 y/o female who is now PPD #2 following IOL for GDMA2 and subsequent at 40 weeks, who developed tachycardia in the period. - tachycardia: - Medicine service consulted - CT-PE negative - Etiology likely 2/2 orthostasis alongside mild clinical dehydration - Resolved s/p IVF, which have subsequently been d/c - Feels well today. Eating well, voiding well, ambulating well. - Pain well controlled with ibuprofen 600mg Q4H PRN. - Routine care -- OOB, ambulation, diet progression as tolerated - After discharge will have [address] Michel. Subjective <Teodoro Mays MD - Last Filed: 11/25/19 07:07> Arina is a 33 y/o female who is now PPD #2 following IOL for GDMA2 and subsequent at 40 weeks. Reports feeling well overall this morning. Endorses some abdominal cramping with pain well managed on analgesics. Voiding small amounts with mild pain. Tolerating meals and able to ambulate some. Endorses p assing gas. Some persistent lochia with some improvement this morning. Breast feeding without difficulty. Review of Systems Denies fever, chills, sweats Denies shortness of breath, difficulty breathing, chest pain, palpitations, chest pressure. Denies breast pain. Denies dysuria. Denies headache or changes in vision. Physical Exam <Teodoro Mays MD - Last Filed: 11/25/19 07:07> General: Alert, oriented. No acute distress. Cardiac: Regular rate and rhythm, no murmurs/rubs/gallops. Respiratory: Clear to auscultation bilaterally a/p, no wheezes/rales/rhonchi. No increased work of breathing. Symmetrical chest rise. No respiratory distress. Abdomen: Soft, nontender, nondistended. Bowel sounds present. Uterus: Uterine fundus firm, palpable 3 cm below umbilicus. Lower Extremities: No lower extremity edema or swelling. No deep calf pain. Taryn's negative bilaterally. Results & Data ([facility]) <Teodoro Mays MD - Last Filed: 11/25/19 07:07> Vital Signs (Past 12 Hours) Vital Signs Temp Pulse Resp BP 11/24/19 23:10 36.6 C 93 H 18 119/63 <Clara Thomas MD, FACOG - Last Filed: 11/25/19 08:12> Co-Signing Physician Notes Resident Physician Supervision Note: I interviewed and examined the patient. Discussed with Dr. Mays and agree with findings and plan as documented in the note. Any exceptions or clarifications are listed here: [None] Documented By: Clara Thomas MD, FACOG Resident Activity Tracking <Teodoro Mays MD - Last Filed: 11/25/19 07:07> Resident Involvement: Resident Care Provided Care Provided: Adult Hospital Medicine and OB Delivery
[2019-11-25] MEDS: DOCUSATE SODIUM 100 MG CAP PO SCH (08:00)
[2019-11-30] MEDS ORDERED: INFLUENZA ADMINISTRATION CHARGE ONE (08:26)
[2019-11-30] MEDS ORDERED: INFLUENZA VIRUS QUAD VACCINE 0.5 ML SYR IM ONE (08:26)
== END 2019-11-25 11:00 | disposition home or self-care (01) | DRG 807 ==
LOC: 4S1 07:44 → 4S2 21:02

== ENCOUNTER 2021-07-20 05:02 | Inpatient (IN) ==
[2021-07-20] MEDS ORDERED: OXYTOCIN 30 UNITS/500 ML BAG IV PRN ×3 (06:10→15:48)
[2021-07-20] MEDS ORDERED: PENICILLIN G POTASSIUM 6 MU in DEXTROSE 5% 250 ML IV STA (06:10)
[2021-07-20] MEDS ORDERED: LACTATED RINGER'S 1,000 ML IV PRN (06:10)
--- NOTE | 2021-07-20 06:23 | History & Physical Report ---
Date of Service July 20, 2021 Assessment & Plan (1) Encounter for supervision of normal in multigravida: Plan: IUP at 38 weeks with SPROM 5 hours ago but no spontaneous contractions will begin PCN and pitocin augmentation check BSG Q4H epidural when requested anticipate vaginal History of Present Illness Primary Care Provider: NO PCP Patient is a 35 yo EDC [birth year] who presents at 38 weeks with SPROM at 0130 this morning. no contractions so far. GBS -positive. complicated by GDM. blood sugars have been in normal range. Last AC was 82%. She also had a 6cm BELIA at 12 weeks. no vaginal bleeding recently. Allergies Allergy/AdvReac Type Severity Reaction Status Date / Time erythromycin base Allergy Mild hives Verified 07/16/21 13:45 Home Medications Medication Instructions Recorded Confirmed Type prenat.vits,reji,zor-slob-wvtwi 1 tab PO DAILY 12/14/18 07/20/21 History acetone (urine) test (Ketone Urine #50 ea 02/04/21 07/16/21 Rx Test) blood sugar diagnostic (OneTouch #150 ea 02/04/21 07/16/21 Rx Verio test strips) blood-glucose meter (OneTouch #1 ea 02/04/21 07/16/21 Rx Verio Reflect Meter) lancets 33 gauge (OneTouch Delica #150 ea 02/04/21 07/16/21 Rx Lancets) Patient History Medical History (Updated 02/05/21 @ 10:28 by Dulce Luke) Abnormal uterine bleeding (AUB) Cervical cancer screening Cystocele Encounter for anatomic survey Gestational diabetes mellitus (GDM) requiring insulin Group B streptococcal carriage complicating H/O varicella Migraine Premature rupture of membranes Surgical History S/P tooth extraction Family History Grandfather (Paternal) Cardiac disorder Other History of thyroid disorder Denies family history of Ovarian cancer Breast cancer Colorectal cancer Endometrial cancer Social History (Updated 01/18/21 @ 13:10 by Janna Weber) Smoking Status: Never smoker Second Hand Exposure: No; Hx Alcohol Use: No Hx Substance Use: No Preferred Language: [employer]ian [employer]oc[employer] Instructor Required: No Beliefs That Will Affect Care: None marital status: marital status details: William Stacy [phone] Current Living Situation: Spouse and Family Current Living Situation Comment: lives with spouse, 2 children, cat-spouse changing litter current occupational status: unemployed current occupation: homemaker Other Information That Helps Us Care for You: No Feels Safe at Home: Yes Safety Concerns: Feels Safe At This Time Assistive Devices: None Review of Systems All systems reviewed & are unremarkable except as noted in HPI & below Physical Exam Constitutional: WD/WN, vitals as above Psychiatric: A+Ox3, euthymic affect Genitourinary: OB Exam Abdomen: + vertex, + estimated weight (7-8 pounds) and + irregular contractions (mild- ) Manual OB Exam: + cervical dilation 1 cm, + cervical effacement 50%, + station -2 and + amniotic fluid (+pooling) clear, nitrazine positive and ferning present OB Exam Monitor Tracing: + external FHT monitor used, + external uterine monitor used, + category I and + normal FHT variability Results & Data ([facility]) Vital Signs (Past 12 Hours) Vital Signs Temp Pulse Resp BP 07/20/21 05:42 98.2 F 18 07/20/21 05:25 88 114/76 Coding Level of Care Code None Diagnoses Encounter for supervision of normal in multigravida Z34.80
[2021-07-20 07:02] LABS: Hematocrit (blood only) 37.9 % (37-47); Hemoglobin 12.6 g/dL (12.0-16.0); Mean Corpuscular Hemoglobin 28.1 pg (25-34); Mean Corpuscular Hgb Conc 33.2 g/dL (32-36); Mean Corpuscular Volume 84.4 fL (80-100); Mean Platelet Volume 11.3 fL (7.4-10.4); Platelet Count 232 K/uL (130-400); RDW Coefficient of Variation 14.4 % (11.5-14.5); RDW Standard Deviation 44.5 fL (36.4-46.3); Red Blood Count 4.49 M/uL (4.2-5.4); White Blood Count 10.02 K/uL (4.8-10.8)
[2021-07-20] MEDS: PENICILLIN G POTASSIUM 3 MU in DEXTROSE 5% 100 ML IV PRN ×2 (11:12→14:57)
--- NOTE | 2021-07-20 11:59 | Labor Progress Brief Note ---
Date of Service July 20, 2021 Subjective Doing well with contractions. Assessment & Plan (1) Group B streptococcal carriage complicating : (2) Gestational diabetes mellitus (GDM) requiring insulin: (3) PROM (premature rupture of membranes): Plan: continue current management. epidural on demand. fetus category one. anticipate . Admission and Anticipated Discharge Date Admission Date: July 20, 2021 Physical Exam Physical Exam: cx--390/-2 toco--q2-4min, pit at 9 efm--130s wtih mod variability, accels to 160s, no decels Results & Data ([facility]) Vital Signs (Past 12 Hours) Vital Signs Temp Pulse Resp BP 07/20/21 11:11 36.7 C 83 20 109/72 07/20/21 10:27 69 114/68 07/20/21 08:33 36.6 C 82 20 119/76 07/20/21 05:42 36.8 C 18 07/20/21 05:25 88 114/76 Coding Level of Care Code None Diagnoses Group B streptococcal carriage complicating O99.820 Gestational diabetes mellitus (GDM) requiring insulin O24.414 PROM (premature rupture of membranes) O42.90
[2021-07-20] MEDS ORDERED: ePHEDrine sulfate 50 MG/ML AMP ONE (14:33)
[2021-07-20] MEDS ORDERED: fentaNYL citrate 100 MCG/2 ML VIAL ONE (14:34)
[2021-07-20] MEDS ORDERED: BUPIVACAINE 0.25% 30 ML VIAL ONE (14:34)
[2021-07-20] MEDS ORDERED: SODIUM CHLORIDE 0.9% INJ 10 ML VIAL ONE (14:34)
[2021-07-20] MEDS ORDERED: fentaNYL 2MCG/ML ROPIVACAINE 1.25MG/ML 100 ML BAG EPI ONE (14:35)
[2021-07-20] MEDS ORDERED: LIDOCAINE 1% LOCAL 20 ML VIAL ONE (15:25)
[2021-07-20] MEDS ORDERED: ACETAMINOPHEN 325 MG TAB PO PRN (15:48)
[2021-07-20] MEDS ORDERED: HYDROCORTISONE ACETATE 25 MG SUPP PR PRN (15:48)
[2021-07-20] MEDS ORDERED: oxyCODONE/ACETAMINOPHEN 5mg/325mg TAB PO PRN (15:48)
[2021-07-20] MEDS ORDERED: DIPHTHERIA/TETANUS/PERTUSSIS 0.5 ML SYR/VIAL IM ONE (15:48)
[2021-07-20] MEDS ORDERED: BENZOCAINE 20% AER SPR 82.5 GM CAN EXT PRN (15:48)
[2021-07-20] MEDS ORDERED: bisacodyL 10 MG SUPP PR PRN (15:48)
[2021-07-20] MEDS ORDERED: METHYLERGONOVINE MALEATE 0.2 MG/ML AMP IM STA (15:57)
--- NOTE | 2021-07-20 15:58 | Delivery Summary ---
Vaginal Delivery Summary Date of Service July 20, 2021 Vaginal Delivery Summary and 2nd Degree LAC Pre-operative Diagnosis: at 38 weeks prom gdm Post-operative Diagnosis: same Procedure: pitocin augmentation second degree laceration and repair EBL: 400cc Anesthesia: local infiltration of the perineum with 1% lidocaine Procedure: Patient presented with prom prior to labor. She required pitocin augmentation. She started to get uncomfortable and requested epidural. then she noted she had to have BM and was c/c/+3. The patient pushed for 2 contractions to deliver a viable female in justus position. The rest of the was then delivered quickly without difficulty. The baby was vigorous. The nose and mouth were bulb suctioned. Cord was clamped and cut on the perineum because of short cord. Cord blood and segment obtained. Placenta delivered spontaneous, intact with a three vessel cord. Cervix/sulci/rectum were intact. A second degree perineal laceration was repaired in the normal standard fashion. Hemostasis obtained with dilute pitocin and fundal massage and IM methergine. Apgars were 8/10. Mother and baby doing well at the end of the delivery. [facility] [place] Vaginal Delivery Charge Delivery Type Details: and 2nd Degree LAC
[2021-07-20] MEDS: IBUPROFEN 600 MG TAB PO PRN ×2 (17:29→22:04)
[2021-07-20] MEDS: DOCUSATE SODIUM 100 MG CAP PO SCH (21:07)
[2021-07-21] MEDS: IBUPROFEN 600 MG TAB PO PRN ×2 (02:02→08:10)
[2021-07-21 06:53] LABS: Hematocrit (blood only) 36.9 % (37-47); Hemoglobin 12.2 g/dL (12.0-16.0)
[2021-07-21] MEDS ORDERED: METHYLERGONOVINE MALEATE 0.2 MG/ML AMP ONE (06:54)
--- NOTE | 2021-07-21 07:18 | Obstetrical Progress Note ---
Date of Service July 21, 2021 Assessment & Plan (1) Vaginal delivery: (2) Group B streptococcal carriage complicating : Patient would like d/c today. GBS positive, so up to peds. Instructions given. Day #:: 1 Subjective Ambulation: ambulating normally Voiding: no voiding problems Passing Gas:: Yes Diet Tolerance:: regular diet Lochia:: Small Feeding Type:: breast feeding bottom slightly sore Physical Exam Constitutional WD/WN, vitals as above Cardiovascular Extremities: no calf tenderness and no edema Gastrointestinal (Abdomen) soft, nt, nd, ff/nt 1 below u Results & Data ([facility]) Vital Signs (Past 12 Hours) Vital Signs Temp Pulse Resp BP Pulse Ox 07/21/21 03:10 36.8 C 85 16 94/62 L 94 07/20/21 22:54 36.6 C 75 16 99/66 L 99
[2021-07-21] MEDS ORDERED: PRENATAL VITAMIN 1 TAB PO SCH (08:00)
[2021-07-21] MEDS: DOCUSATE SODIUM 100 MG CAP PO SCH (08:10)
--- NOTE | 2021-07-21 16:34 | Communication Note ---
Date of Service: July 21, 2021 At signout this am made aware by md that pt would like to go home later today if ok with peds (was gbs pos, but adequately treated). called by nursing that peds ready to dc baby and pt doing well and wants to be dc'd too. order placed.
[2021-07-21] MEDS ORDERED: bisacodyL 5 MG TABEC PO SCH (20:00)
== END 2021-07-21 19:20 | disposition home or self-care (01) | DRG 807 ==
LOC: OPB 05:02 → 4S1 05:05 → 4E2 19:04

== ENCOUNTER 2024-05-12 10:23 | Inpatient (IN) ==
[2024-05-12] MEDS ORDERED: OXYTOCIN 30 UNITS/NSS 30 UNITS/500 ML BAG IV PRN ×2 (11:11→17:00)
[2024-05-12] MEDS ORDERED: LIDOCAINE 1% LOCAL 20 ML VIAL INFIL PRN (11:11)
--- NOTE | 2024-05-12 11:21 | Labor Progress Brief Note ---
Date of Service May 12, 2024 Subjective 40w6d for IOL d/t postdates. , all prior vaginal deliveries. AMA and GDM diet controlled, GBS positive. Assessment & Plan (1) Elderly multigravida: Plan: Post dates, AMA, for induction today. GBS positive and PCN ordered. (2) Gestational diabetes: Plan: GDM diet controlled. Admission and Anticipated Discharge Date Admission Date: May 12, 2024 Physical Exam Genitourinary: Results & Data Vital Signs (Past 12 Hours) Vital Signs Temp Pulse Resp BP 05/12/24 10:45 97.7 F 82 16 117/69 05/12/24 10:36 82 117/69 Coding Level of Care Code None Diagnoses Elderly multigravida O09.529 Gestational diabetes O24.419
[2024-05-12] MEDS: LACTATED RINGER'S 1,000 ML IV PRN (11:26)
[2024-05-12] MEDS: OXYTOCIN 30 UNITS/NSS 30 UNITS/500 ML BAG IV PRN (11:33)
[2024-05-12] MEDS: PENICILLIN GK 6 MU in DEXTROSE 5% 250 ML IV STA (12:01)
[2024-05-12 12:07] LABS: Hematocrit (blood only) 37.4 % (37.0-47.0); Hemoglobin 12.5 g/dl (12.0-16.0); Mean Corpuscular Hemoglobin 27.1 pg (25.0-34.0); Mean Corpuscular Hgb Conc 33.4 g/dL (32.0-36.0); Mean Platelet Volume 11.6 fL (9.4-12.4); Platelet Count 265 K/uL (130-400); RDW Coefficient of Variation 13.9 % (11.5-14.5); RDW Standard Deviation 40.5 fL (36.4-46.3); Red Blood Count 4.62 M/uL (4.20-5.40); White Blood Count 9.84 K/ul (4.8-10.8)
[2024-05-12] MEDS: PENICILLIN GK 3 MU in DEXTROSE 5% 100 ML IV PRN (15:38)
[2024-05-12] MEDS ORDERED: BUPIVACAINE 0.25% PF 30 ML VIAL EPI PRN (15:39)
[2024-05-12] MEDS ORDERED: NALBUPHINE HCL INJ 10 MG/ML AMP IV PRN (15:39)
[2024-05-12] MEDS ORDERED: diphenhydrAMINE 50 MG/ML VIAL IV PRN (15:39)
[2024-05-12] MEDS ORDERED: ROPIVACAINE 0.5% PF 5 MG/ML 20 ML VIAL EPI PRN (15:39)
[2024-05-12] MEDS ORDERED: NALOXONE HCL 1 MG in SODIUM CHLORIDE 0.9% 1,000 ML IV PRN (15:39)
[2024-05-12] MEDS ORDERED: ONDANSETRON INJ 2 MG/ML 2 ML VIAL IV PRN (15:39)
[2024-05-12] MEDS ORDERED: SODIUM CHLORIDE 0.9% PF INJ 10 ML VIAL EPI PRN (15:39)
[2024-05-12] MEDS ORDERED: fentaNYL citrate PF 100 MCG/2 ML VIAL EPI PRN (15:39)
[2024-05-12] MEDS ORDERED: NALOXONE HCL 0.4 MG/1 ML VIAL/CARP IV PRN (15:39)
[2024-05-12] MEDS ORDERED: ePHEDrine sulfate 50 MG/ML AMP IV PRN (15:39)
[2024-05-12] MEDS ORDERED: fentANYL 2 MCG/ML BUPIVacaine 0.125%-NSS 100ML BAG EPI PRN (15:39)
[2024-05-12] MEDS ORDERED: LIDOCAINE 2% MPF LOCAL 5 ML VIAL EPI PRN (15:39)
--- NOTE | 2024-05-12 15:41 | Anesthesiology Consultation ---
Date of Service May 12, 2024 Assessment & Plan (1) Encounter for pre-operative examination: Chart Review Chart Review: Patient NOT seen in Pre Admission Testing and Acceptable Risk for Labor Epidural Consults Requested none History Height/Weight Height: 5 ft 10 in Weight: 105.233 kg Allergies Allergy/AdvReac Type Severity Reaction Status Date / Time erythromycin base Allergy Mild hives Verified 05/11/24 13:11 Medications Home Medications Medication Instructions Recorded Confirmed Last Taken docosahexaenoic acid 200 mg 200 mg PO DAILY 09/18/23 05/11/24 Unknown capsule ( DHA) acetone (urine) test (Ketone Urine #50 ea 10/13/23 05/11/24 Unknown Test strips) blood sugar diagnostic (OneTouch #150 ea 10/13/23 05/11/24 Unknown Verio test strips) blood-glucose meter (OneTouch #1 ea 10/13/23 05/11/24 Unknown Verio Reflect Meter) lancets 33 gauge (OneTouch Delica #150 ea 10/13/23 05/11/24 Unknown Plus Lancet) Active Medications Generic Name Dose Route Start Last Admin Trade Name Freq PRN Reason Stop Dose Admin Lactated Ringer's 1,000 mls @ 125 mls/hr 05/12/24 11:11 05/12/24 15:56 Lr IV 05/13/24 11:10 999 mls/hr .Q8H PRN Administration L&D Protocol Protocol Oxytocin 30 units in 500 mls @ 8 mls/hr 05/12/24 11:11 05/12/24 14:00 Pitocin 30 Units/Nss IV 05/14/24 11:10 0.48 units/hr .Q24H PRN 8 mls/hr Labor Induction/Augmentation Titration Protocol 0.48 UNITS/HR Penicillin G Potassium 3 mu/ 106 mls @ 100 mls/hr 05/12/24 14:11 05/12/24 15:38 Dextrose IV 05/22/24 14:10 100 mls/hr Q4H PRN Administration GBS(+) Until Delivery Past Medical History Medical History (Updated 05/12/24 @ 15:40 by Maicol Silva MD) Encounter for pre-operative examination Subchorionic hematoma, antepartum Diastasis recti hx of physical therapy Umbilical hernia Dysuria Female dyspareunia Mixed incontinence Pelvic floor dysfunction Prolapse of female pelvic organs Cystocele Missed History of chicken pox Rectocele Hx gestational diabetes last 2 pregnancies, no problems since last 07/2021 Seasonal allergies History of COVID-19 05/2021 -> mild flu-like symptoms, body aches, fever Past Family History Family History Grandfather (Paternal) Cardiac disorder Grandmother (Maternal) Cancer Other History of thyroid disorder No family history of adverse response to anesthesia Denies family history of Ovarian cancer Breast cancer Colorectal cancer Endometrial cancer Past Surgical History Surgical History H/O umbilical hernia repair (06/18/22) Open Umbilical Hernia Repair, primary repair- Pedro Maya DO, FACS S/P tooth extraction Social History Smoking Status: Never smoker Do You Dip or Chew Tobacco: No Hx Alcohol Use: No alcohol intake frequency: a few times a month Hx Substance Use: No substance use type: does not use Physical Exam Vital Signs Last Vital Signs Temp 36.7 C 05/12/24 15:10 Pulse 87 05/12/24 15:40 Resp 18 05/12/24 13:00 BP 104/69 05/12/24 15:07 Pulse Ox 100 05/12/24 15:40 Testing Laboratory Results 05/12/24 11:34 05/12/24 12:29 POC Glucose 113 H
[2024-05-12] MEDS: fentaNYL citrate PF 100 MCG/2 ML VIAL ONE (16:06)
[2024-05-12] MEDS: BUPIVACAINE 0.25% PF 30 ML VIAL ONE (16:06)
[2024-05-12] MEDS: LIDOCAINE 2%/EPINEPHRINE 1:200,000 20 ML PF ONE (16:06)
[2024-05-12] MEDS: SODIUM CHLORIDE 0.9% PF INJ 10 ML VIAL ONE (16:07)
[2024-05-12] MEDS: fentANYL 2 MCG/ML BUPIVacaine 0.125%-NSS 100ML BAG ONE (16:11)
[2024-05-12] MEDS: ePHEDrine sulfate 50 MG/ML AMP ONE (16:22)
--- NOTE | 2024-05-12 16:55 | Delivery Summary ---
Vaginal Delivery Summary Date of Service May 12, 2024 Vaginal Delivery Summary DIAGNOSES: 1. Vargas intrauterine at 40w6d gestation. 2. Induction of Labor. 3. Group B Streptococcus Pos. 4. Gestational Diabetes 5. Advanced Maternal Age PROCEDURE: Spontaneous vaginal delivery and repair of second degre laceration. SURGEON: Libby Bledsoe MD. CONCRETE BOOM PUMP OPERATOR: None. ESTIMATED BLOOD LOSS: 219 QBL mL. COMPLICATIONS: None. PLACENTA: Spontaneous and intact with a 3-vessel cord. DISPOSITION: Stable to labor and delivery. DESCRIPTION: The patient pushed well and brought the head to in DOA position. The 's head was allowed to deliver with contraction force and no further active pushing, with the perineum protected during this time. There was no nuchal cord. The left shoulder was anterior. The shoulders and body delivered without any difficulty, and the infant was placed on the maternal abdomen. It was vigorous and moving all extremities, and making respiratory efforts. The cord was doubly clamped by the MD and then cut by the FOB. The placenta delivered spontaneously and was noted to be intact and with a 3VC. The cervix, vagina and perineum were examined and were found to have a second degree with nearly-hemostatic edges, likely representing a separation of the prior perineal scar. This was repaired in the usual manner with vicryl suture. The fundus was firm and lochia minimal immediately after delivery. [facility] Vaginal Delivery Charge Vaginal Delivery Codes: 32059 global code for the antepartum, delivery, and post-
[2024-05-12] MEDS ORDERED: BENZOCAINE 20% SPRY 85 APPLN/85 GM CAN EXT PRN (17:00)
[2024-05-12] MEDS ORDERED: bisacodyL 10 MG SUPP PR PRN (17:00)
[2024-05-12] MEDS ORDERED: HYDROCORTISONE ACETATE 25 MG SUPP PR PRN (17:00)
[2024-05-12] MEDS ORDERED: oxyCODONE/ACETAMINOPHEN 5mg/325mg TAB PO PRN (17:00)
--- NOTE | 2024-05-12 18:15 | Anesthesia Procedure Note ---
Date of Service May 12, 2024 Anesthesia Post Epidural Note Vital Signs Vital Signs: Temp Pulse Resp BP Pulse Ox 36.6 C 77 16 111/57 L 100 05/12/24 16:55 05/12/24 18:04 05/12/24 17:55 05/12/24 18:04 05/12/24 17:20 Pain Intensity Lower Abdomen: Pain Intensity: 7 Notes Mental Status: alert / awake / arousable and participated in evaluation Patient Amnestic to Procedure: No Nausea / Vomiting: adequately controlled Pain: adequately controlled Airway Patency, RR, SpO2: stable & adequate BP & HR: stable & adequate Hydration State: stable & adequate Neuraxial Anesthesia: was administered and sensory block is resolving Anesthetic Complications: no major complications apparent and Pt Satisfied with anesthetic care Epidural: Removed without complications and With tip intact
[2024-05-12] MEDS: DIPHTHER/TETAN/PERTUS Vaccine (Tdap, Adol/Adult) 0.5mL IM ONE (19:10)
[2024-05-12] MEDS: SODIUM CHLORIDE 0.9% PF INJ 10 ML VIAL EPI STA (19:11)
[2024-05-12] MEDS: LIDOCAINE 2%/EPINEPHRINE 1:200,000 20 ML PF EPI STA (19:11)
[2024-05-12] MEDS: fentaNYL citrate PF 100 MCG/2 ML VIAL EPI STA (19:12)
[2024-05-12] MEDS: BUPIVACAINE 0.25% PF 30 ML VIAL EPI STA (19:12)
[2024-05-13 06:27] LABS: Hematocrit (blood only) 37.1 % (37.0-47.0); Hemoglobin 12.2 g/dl (12.0-16.0); Mean Corpuscular Hemoglobin 27.1 pg (25.0-34.0); Mean Corpuscular Hgb Conc 32.9 g/dL (32.0-36.0); Mean Corpuscular Volume 82.3 fL (80.0-100.0); Mean Platelet Volume 11.3 fL (9.4-12.4); Platelet Count 269 K/uL (130-400); Red Blood Count 4.51 M/uL (4.20-5.40)
--- NOTE | 2024-05-13 06:59 | Obstetrical Progress Note ---
Date of Service May 13, 2024 Assessment & Plan (1) Normal spontaneous vaginal delivery: Plan Both mom and baby doing well. Discharge today as per protocol. Follow up after 6 weeks for visit. Admission and Anticipated Discharge Date Admission Date: May 12, 2024 Supervising Physician Co-Signing Physician Notes Resident Physician Supervision Note: I interviewed and examined the patient. Discussed with Dr. Johns and agree with findings and plan as documented in the note. Any exceptions or clarifications are listed here: [ ] Documented By: Libby Bledsoe MD, FACOG Subjective #1PPD following for 37 years at 40+6week POG. No active complains Both mom and baby doing well. Pain: Mild, intermittent Lochia: Moderate Diet: Regular Ob diet Gas: Aware of passing, no abdominal distension Peeing: Normal, no bladder distension Ambulation: Normally Review of Systems Review of Systems: As per HPI Physical Exam Physical Exam: General: Alert and oriented. No acute distress. CVS: S1 S2+ No murmurs, regular rhythm. Respiratory: CTA bilaterally. No rhonchi, wheezes, or crackles. No increased work of breathing. Abdomen: Bowel sound +. Soft, nontender Uterus: Fundus firm and palpable few cm below the umbilicus. Lower extremities: No LE edema. No deep calf pain. Results & Data Vital Signs (Past 12 Hours) Vital Signs Temp Pulse Pulse Resp BP BP Pulse Ox 05/13/24 02:54 36.6 C 69 16 106/70 97 05/12/24 22:58 36.4 C L 67 18 106/72 98 05/12/24 20:17 36.5 C 84 16 109/72 97 05/12/24 19:02 74 114/57 L 05/12/24 19:00 36.6 C 18 O2 Del Method 05/13/24 02:54 Room Air 05/12/24 22:58 Room Air 05/12/24 20:17 Room Air 05/12/24 19:02 05/12/24 19:00 Resident Activity Tracking Resident Involvement: Resident Care Provided Care Provided: OB Delivery
[2024-05-13] MEDS: DOCUSATE SODIUM 100 MG CAP PO SCH (08:14)
[2024-05-13] MEDS: IBUPROFEN 600 MG TAB PO PRN (08:14)
[2024-05-13] MEDS: PRENATAL VITAMIN 1 TAB PO SCH (08:14)
[2024-05-13 09:32] VITALS: O2SAT 99
[2024-05-13] MEDS: ACETAMINOPHEN 325 MG TAB PO PRN (12:56)
[2024-05-13 13:07] VITALS: PULSE 69; RESP 16
[2024-05-13 16:49] VITALS: BP 109/72; TEMP 97.7
[2024-05-13] MEDS ORDERED: bisacodyL 5 MG TABEC PO SCH (20:00)
== END 2024-05-13 18:05 | disposition home or self-care (01) | DRG 807 ==
LOC: 4S1 10:23 → 4E2 20:22